=== PATIENT | male | born 1960 | race Caucasian/White ===

== ENCOUNTER 2019-06-21 06:22 | Observation (INO) | payer OTHER ==
[2019-06-21 06:57] LABS: BASOPHILS # (AUTO) 0.1 10^3/uL (0.0-0.1); BASOPHILS % (AUTO) 0.6 %; EOSINOPHILS # (AUTO) 0.1 10^3/uL (0.0-0.7); EOSINOPHILS % (AUTO) 0.8 %; HGB - HEMOGLOBIN 13.9 g/dL (14.0-18.0); LYMPHOCYTES # (AUTO) 1.2 10^3/uL (1.5-3.5); LYMPHOCYTES % (AUTO) 10.7 %; MEAN CORPUSCULAR HEMOGLOBIN 32.7 pg (27.0-31.0); MEAN CORPUSCULAR HGB CONC 33.3 g/dL (32.0-36.0); MEAN CORPUSCULAR VOLUME 98.1 fL (80.0-94.0); MEAN PLATELET VOLUME 9.7 fL (7.4-11.4); MONOCYTES # (AUTO) 0.6 10^3/uL (0.0-1.0); MONOCYTES % (AUTO) 5.2 %; NEUTROPHILS # (AUTO) 8.9 10^3/uL (1.5-6.6); NEUTROPHILS % (AUTO) 82.1 %; PLT - PLATELET COUNT 191 10^3/uL (130-450); RED BLOOD COUNT 4.25 10^6/uL (4.70-6.10); RED CELL DISTRIBUTION WIDTH 12.3 % (12.0-15.0); WHITE BLOOD COUNT 10.8 x10^3/uL (4.8-10.8)
--- NOTE | 2019-06-21 07:02 | ED Physician Documentation ---
PD HPI URI - Stated complaint Stated Complaint: COUGH - Chief complaint Chief Complaint: Resp - History obtained from History obtained from: Patient - History of Present Illness Timing - onset: Yesterday Timing duration: Days (1He had an onset of malaise aches and chills along with some cough yesterday. This worsened overnight and noticed hemoptysis with starting coughing overnight. He does feel short of breath. He is not had any exertional dyspnea nor chest pain in the past. Denies any pedal edema nor orthopnea. No recent unusual change in activity. He states he did pretend or work as a [employer] last week and [employer] custom and [employer]. He states this was stored in a plastic bag and a clean area so does not believe he had unusual inhalations. He was around a lot of kids. He denies any heart or lung problems typically. He states he has been told he has a heart murmur in the past. He is a non-smoker.) Timing details: Abrupt onset, Still present Associated symptoms: Chills, Productive cough (Some mucus but mainly some blood and a couple of clots.), Dyspnea. No: NVD Contributing factors: No: Sick contact, Immunocompromised, COPD / asthma Improves by: Rest Worsened by: Activity Similar symptoms before: Has not had sx before Recently seen: Not recently seen Review of Systems Constitutional: reports: Chills (for 1 day), Myalgias, Fatigue Nose: denies: Rhinorrhea / runny nose, Congestion Throat: denies: Sore throat Cardiac: denies: Palpitations, Pedal edema, Calf pain Respiratory: reports: Dyspnea, Cough, Wheezing GI: denies: Abdominal Pain, Nausea, Vomiting : denies: Dysuria Skin: denies: Rash, Lesions Musculoskeletal: denies: Neck pain, Back pain, Extremity swelling Neurologic: reports: Generalized weakness. denies: Focal weakness, Numbness, Near syncope, Altered mental status Endocrine: denies: Weight loss, Weight gain, Easy bruising / bleeding Immunocompromised: denies: Immunocompromised PD PAST MEDICAL HISTORY - Past Medical History Past Medical History: Yes Cardiovascular: None, Murmur Respiratory: None Neuro: None Endocrine/Autoimmune: None Psych: Depression, Other Musculoskeletal: Osteoarthritis, Gout Other Past Medical History: Insomnia - Past Surgical History Past Surgical History: Yes General: Hiatal hernia repair - Present Medications Home Medications: Ambulatory Orders Medication Instructions Recorded Confirmed Allopurinol [Zyloprim] 300 mg PO QPM 06/21/19 06/21/19 Citalopram Hydrobromide [Celexa] 1 tab PO QPM 06/21/19 06/21/19 Meloxicam [Mobic] 15 mg PO QPM 06/21/19 06/21/19 Zolpidem Tartrate [Ambien] 10 mg PO QPM 06/21/19 06/21/19 - Allergies Allergies/Adverse Reactions: Allergies Allergy/AdvReac Type Severity Reaction Status Date / Time No Known Drug Allergies Allergy Verified 06/21/19 06:40 - Social History Does the pt smoke?: No Smoking Status: Never smoker Does the pt drink ETOH?: Yes ETOH Use: Beer - Immunizations Immunizations are current?: Yes - POLST Patient has POLST: No PD ED PE NORMAL - Vitals Vital signs reviewed: Yes (sats 83-88% RA.) - General General: Alert and oriented X 3, Well developed/nourished - HEENT HEENT: Moist mucous membranes, Pharynx benign - Neck Neck: Supple, no meningeal sign, No adenopathy - Cardiac Cardiac: RRR, Other (2 out of 6 murmur noted at the left sternal border radiating to the back.) - Respiratory Respiratory: No: Clear bilaterally (I hear some mild diffuse wheezes and some coarse sounds in the left lower base. No fine crackles are heard.) - Abdomen Abdomen: Soft, Non tender - Male Male : Deferred - Rectal Rectal: Deferred - Back Back: No CVA TTP - Derm Derm: Normal color - Extremities Extremities: No deformity, No tenderness to palpate, No edema, No calf tenderness / cord - Neuro Neuro: Alert and oriented X 3, No motor deficit, Normal speech Results - Vitals Vitals: Vital Signs - 24 hr 06/21/19 06/21/19 06/21/19 06:25 07:21 07:39 Temperature 36.5 C Heart Rate 96 85 Respiratory 16 20 Rate Blood Pressure 148/82 H 124/75 O2 Saturation 91 L 94 91 L 06/21/19 06/21/19 06/21/19 07:40 07:59 09:12 Temperature 37.9 C H Heart Rate 86 88 Respiratory 20 12 20 Rate Blood Pressure 105/67 O2 Saturation 94 91 L 12/16/19 12/16/19 12/16/19 09:49 10:07 11:15 Temperature 38 C H Heart Rate 85 91 Respiratory 12 19 Rate Blood Pressure 97/76 O2 Saturation 88 L 92 Oxygen O2 Source Nasal cannula Oxygen Flow Rate 2 - Labs Labs: Laboratory Tests 06/21/19 06/21/19 06/21/19 06:50 06:50 06:50 WBC 10.8 RBC 4.25 L Hgb 13.9 L Hct 41.7 L MCV 98.1 H MCH 32.7 H MCHC 33.3 RDW 12.3 Plt Count 191 MPV 9.7 Neut # (Auto) 8.9 H Lymph # (Auto) 1.2 L Donley # (Auto) 0.6 Eos # (Auto) 0.1 Baso # (Auto) 0.1 Absolute Nucleated RBC 0.00 Nucleated RBC % 0.0 ESR Sodium 138 Potassium 4.5 Chloride 103 Carbon Dioxide 27 Anion Gap 8.0 BUN 16 Creatinine 1.1 Estimated GFR (MDRD) 69 L Glucose 120 H Calcium 9.3 Total Bilirubin 1.1 H AST 31 ALT 23 Alkaline Phosphatase 58 Lactate Dehydrogenase C-Reactive Protein B-Natriuretic Peptide 181 H Total Protein 6.7 Albumin 3.7 Globulin 3.0 Albumin/Globulin Ratio 1.2 Lipase 28 Urine Color Urine Clarity Urine pH Ur Specific [place] Urine Protein Urine Glucose (UA) Urine Ketones Urine Occult Blood Urine Nitrite Urine Bilirubin Urine Urobilinogen Ur Leukocyte Esterase Urine RBC Urine WBC Ur Squamous Epith Cells Urine Bacteria Urine Culture Comments Influenza A (Rapid) Influenza B (Rapid) RSV Rapid 06/21/19 06/21/19 06/21/19 06:50 06:50 09:50 WBC RBC Hgb Hct MCV MCH MCHC RDW Plt Count MPV Neut # (Auto) Lymph # (Auto) Donley # (Auto) Eos # (Auto) Baso # (Auto) Absolute Nucleated RBC Nucleated RBC % ESR Sodium Potassium Chloride Carbon Dioxide Anion Gap BUN Creatinine Estimated GFR (MDRD) Glucose Calcium Total Bilirubin AST ALT Alkaline Phosphatase Lactate Dehydrogenase 165 C-Reactive Protein 1.4 H B-Natriuretic Peptide Total Protein Albumin Globulin Albumin/Globulin Ratio Lipase Urine Color Urine Clarity Urine pH Ur Specific [place] Urine Protein Urine Glucose (UA) Urine Ketones Urine Occult Blood Urine Nitrite Urine Bilirubin Urine Urobilinogen Ur Leukocyte Esterase Urine RBC Urine WBC Ur Squamous Epith Cells Urine Bacteria Urine Culture Comments Influenza A (Rapid) Influenza B (Rapid) RSV Rapid Negative 06/21/19 06/21/19 06/21/19 09:50 10:30 11:30 WBC RBC Hgb Hct MCV MCH MCHC RDW Plt Count MPV Neut # (Auto) Lymph # (Auto) Donley # (Auto) Eos # (Auto) Baso # (Auto) Absolute Nucleated RBC Nucleated RBC % ESR 4 Sodium Potassium Chloride Carbon Dioxide Anion Gap BUN Creatinine Estimated GFR (MDRD) Glucose Calcium Total Bilirubin AST ALT Alkaline Phosphatase Lactate Dehydrogenase C-Reactive Protein B-Natriuretic Peptide Total Protein Albumin Globulin Albumin/Globulin Ratio Lipase Urine Color YELLOW Urine Clarity CLEAR Urine pH 7.0 Ur Specific [place] <=1.005 Urine Protein NEGATIVE Urine Glucose (UA) NEGATIVE Urine Ketones NEGATIVE Urine Occult Blood NEGATIVE Urine Nitrite NEGATIVE Urine Bilirubin NEGATIVE Urine Urobilinogen 0.2 (NORMAL) Ur Leukocyte Esterase NEGATIVE Urine RBC None Seen Urine WBC 0-3 Ur Squamous Epith Cells NONE SEEN Urine Bacteria None Seen Urine Culture Comments NOT INDICATED Influenza A (Rapid) Negative Influenza B (Rapid) Negative RSV Rapid - Rads (name of study) chest xray Radiology: Prelim report reviewed (Left lower infiltrate consistent with pneumonia), See rad report chest CT Radiology: Prelim report reviewed (Interstitial changes and fluid consistent with CHF and pulmonary edema), EMP read contemporaneously, See rad report PD MEDICAL DECISION MAKING - ED course Complexity details: reviewed results (initialCXR says pneumonia. The CT read is pulmonary edema, but clinically does not fit. I think it is interstitial pneumonia. Consider inflammatory as well. He does not seem CHF. ), re-evaluated patient (He was given nebulizer treatments and started with medications presuming bronchitis or pneumonia. He is not having any respiratory work such as retractions nor positional comfort. However he is still saturating down to as low as 82 to 83% on room air though it does oscillate between 83 and 90 if he takes a deep breath. He is oxygenating well with just a nasal cannula at 2 L.), considered differential (Sounds like bronchitis with some wheezing chills malaise myalgias and cough. However he is interestingly hypoxic.), d/w patient Departure - Departure Disposition: [facility] DC/Xfer Clinical Impression: Acute pneumonia, Hypoxia, Cough with hemoptysis Condition: Stable Discharge Date/Time: 06/21/19 12:32
[2019-06-21 07:15] LABS: ALBUMIN 3.7 g/dL (3.2-5.5); ALBUMIN/GLOBULIN RATIO 1.2 (1.0-2.2); BILIRUBIN,TOTAL 1.1 mg/dL (0.2-1.0); CALCIUM 9.3 mg/dL (8.5-10.3); CREATININE 1.1 mg/dL (0.6-1.2); TOTAL PROTEIN 6.7 g/dL (6.7-8.2)
[2019-06-21] MEDS ORDERED: ALBUTEROL NEB 2.5 MG/3 ML INH STA ×2 (07:30→09:46)
--- NOTE | 2019-06-21 08:02 | XRAY Report ---
Reason: dyspnea/ cough Procedure Date: 06/21/2019 Accession Number: [id number] / [id number] Procedure: XR - Chest 2 View X-Ray CPT Code: 57464 Final Report FULL RESULT: EXAM: CHEST RADIOGRAPHY EXAM DATE: 06/21/2019 07:38 AM. CLINICAL HISTORY: Dyspnea/cough. COMPARISON: CXR2V 03/15/2006 9:39 PM. TECHNIQUE: 2 views. FINDINGS: Lungs/Pleura: There is mild patchy opacity at the posterior base of the left lower lobe, best seen on the lateral view. The right lung is clear. No pleural effusion. No pneumothorax. Normal volumes. Mediastinum: Heart and mediastinal contours are unremarkable. Other: No acute osseous abnormality. IMPRESSION: Mild patchy opacity at the posterior base of the left lower lobe, suspicious for pneumonia or aspiration in the appropriate clinical context. RADIA
[2019-06-21] MEDS ORDERED: IOVERSOL 320 100 ML VIAL IVP ONE ×2 (08:32→12:35)
[2019-06-21] MEDS ORDERED: BENZONATATE 100 MG CAPSULE PO STA (08:58)
[2019-06-21] MEDS ORDERED: cefTRIAXone 1 GM VIAL IVP STA (08:58)
[2019-06-21] MEDS ORDERED: DEXAMETHASONE 10 MG/ML VIAL IVP STA (08:58)
[2019-06-21] MEDS ORDERED: AZITHROMYCIN 250 MG TABLET PO STA (08:58)
--- NOTE | 2019-06-21 09:35 | CT Report ---
Reason: cough/chills and hemoptysis Procedure Date: 06/21/2019 Accession Number: [id number] / [id number] Procedure: CT - CHEST W CPT Code: Final Report FULL RESULT: EXAM: CT CHEST WITH CONTRAST EXAM DATE: 06/21/2019 08:54 AM. CLINICAL HISTORY: Cough/chills and hemoptysis in a 59-year-old male. COMPARISONS: CHEST 2 VIEW 06/21/2019 7:19 AM. CXR2V 03/15/2006 9:39 PM. TECHNIQUE: Emergent axial helical CT imaging was performed through the chest. IV contrast: 80 mL Optiray 320. Reconstructions: Coronal and sagittal. In accordance with CT protocol optimization, one or more of the following dose reduction techniques were utilized for this exam: automated exposure control, adjustment of mA and/or KV based on patient size, or use of iterative reconstructive technique. FINDINGS: Lungs/Pleura: No nodules, bronchial thickening, consolidation, or edema. Pulmonary vasculature mildly thickened with adjacent edema. No pericardial or pleural effusion. No pneumothorax. Mediastinum: Heart size upper normal with mild to moderate pulmonary vascular congestion and mild interstitial and alveolar edema. Bones: Unremarkable for age. Visualized Abdomen: Unremarkable. Other: None. IMPRESSION: Mild CHF and pulmonary edema. No other abnormalities noted. RADIA
[2019-06-21 10:49] LABS: RESPIRATORY SYNCYTIAL VIRUS Negative (Negative)
[2019-06-21 11:45] LABS: BILIRUBIN,URINE NEGATIVE (NEGATIVE); GLUCOSE, URINE (UA) NEGATIVE (NEGATIVE); KETONES,URINE (UA) NEGATIVE (NEGATIVE); LEUKOCYTE ESTERASE, URINE NEGATIVE (NEGATIVE); NITRITE,URINE NEGATIVE (NEGATIVE); OCCULT BLOOD,URINE NEGATIVE (NEGATIVE); PROTEIN,URINE NEGATIVE (NEGATIVE); UROBILINOGEN,URINE 0.2 (NORMAL) E.U./dL (NORMAL)
[2019-06-21 11:51] LABS: CLARITY,URINE CLEAR (CLEAR)
[2019-06-21] MEDS ORDERED: ACETAMINOPHEN 325 MG TABLET PO PRN (11:51)
[2019-06-21] MEDS ORDERED: oxyCODONE 5 MG TABLET PO PRN (11:51)
[2019-06-21] MEDS ORDERED: ONDANSETRON 4 MG/2 ML VIAL IVP PRN (11:51)
[2019-06-21] MEDS ORDERED: SODIUM CHLORIDE FLUSH 0.9% 10 ML SYRINGE IVP PRN (11:51)
[2019-06-21] MEDS ORDERED: ONDANSETRON ODT 4 MG TABLET TL PRN (11:51)
[2019-06-21 11:54] LABS: BACTERIA,URINE None Seen /HPF (None Seen); RBC,URINE None Seen /HPF (0-5); SQUAMOUS EPITHELIAL CELL,UR NONE SEEN (<= Few)
[2019-06-21] MEDS ORDERED: SODIUM CHLORIDE 0.9% 1,000 ML IV ONE (12:30)
[2019-06-21] MEDS: SODIUM CHLORIDE 0.9% 1,000 ML IV SCH ×2 (13:13→22:47)
[2019-06-21] MEDS: SODIUM CHLORIDE FLUSH 0.9% 10 ML SYRINGE IVP SCH (13:14)
[2019-06-21 13:24] LABS: HGB - HEMOGLOBIN 13.5 g/dL (14.0-18.0)
--- NOTE | 2019-06-21 13:25 | PHARMACY PROGRESS NOTE ---
- Best Possible Medication History Admit Date and Time: 06/21/19 1153 Processed by: Nursing Medication History completed: Yes As the person ultimately responsible for medication therapy, providers are able to order a medication from an existing home medication list in [facility] via the "Reconcile Routine" prior to Confirmation of that medication by sales and support center agent. Such practice is discouraged except when the physician, in their clinical judgment, deems that a medical need exists for a medication without regard to previous use.
--- NOTE | 2019-06-21 13:45 | HISTORY & PHYSICAL EXAMINATION ---
Chief Complaint - Chief Complaint Chief Complaint: myalgias, fatigue, cough w hemoptysis History of Present Illness - Admitted From Admitted From:: Home/ER - History Obtained From Records Reviewed: [facility] History obtained from: patient Exam Limitations: none - History of Present Illness HPI Comment/Other: He regards himself is a healthy man. Does not smoke. Drinks a few beers every once well. But his problems of depression, and osteoarthritis are stable. His activities are not limited by any cardiopulmonary complaints. No one else around him is sick. He is retired. He worked as a Works[employer] last week using a [employer]. And yesterday he began to have malaise, and just hurting all over. It was a mild cough. He denied any rigors, fever. As the day progressed into the night, the cough got worse. Started feeling short of breath. He denied chest pain, pleuritic component at all. When he started coughing up scant hemoptysis and then clots of hemoptysis he became alarmed and came to the emergency room. He denies headache, runny nose, ear pain, throat pain. He denies any leg edema, recent long-term travel, GI complaints. He denies any bruising or body rashes. In the emergency room his temperature was 36 5, heart rate 96, blood pressure 148/92 and he was 91% on room air. He is ended up requiring 2 L nasal cannula. At times his O2 sat still dropped to 88% with that nasal cannula. White cell count is normal. Hemoglobin 13.9. MCV 98. Random glucose is a little high at 120. Chest x-ray was negative. I was called to admit the patient for "pneumonia". CT of the chest had also been done. And I noticed that the CT showed no pneumonia. But with mild pulmonary vasculature thickening and adjacent edema. No pericardial or pleural effusion. Heart size was the upper limits of normal with mild to moderate pulmonary vascular congestion and mild interstitial and alveolar edema. I was worried about Karmen's granulomatosis or Goodpasture's and I had the emergency room physician do a C-reactive protein and a sed rate. C-reactive protein was 1.4. LDH was 165. Sedimentation rate was 4. He has received azithromycin, dexamethasone and albuterol in the emergency room. He will be placed in observation overnight. History - Past Medical History Cardiovascular: reports: Murmur Respiratory: reports: None Neuro: reports: None Endocrine/Autoimmune: reports: None GI: reports: Hiatal hernia : reports: None HEENT: reports: None Psych: reports: Depression Musculoskeletal: reports: Osteoarthritis, Gout Derm: reports: None MRSA Hx?: No Other Past Medical History: Insomnia - Past Surgical History General: reports: Hiatal hernia repair - Family & Social History Family History Comment/Other: Dad around age 84 of just "wearing down". He had no history of cancer, heart disease, autoimmune disease. Mom is still alive but elderly. Again she has no problems with autoimmune disease, cancer, heart attack, stroke. He is 1 of 5 children. 1 of his brothers smoked like a chimney and is on oxygen for emphysema but his other siblings are healthy. He has 2 children and they are completely healthy. Living arrangement: At home Living Situation: Other (with fiance) Social History Notes: He is retired [employer]. Says he never smoked. Rarely drank. If he does drink he prefers beer. from his first . Currently engaged to his fiance. Denies any history of recreational substance abuse. - Substance History Use: Uses substance without health or social issues: NONE Abuse: Recurrent use of substance despite neg consequences: NONE Dependence: Experiences withdrawal or developed tolerances: NONE - POLST Patient has POLST: No POLST Status: Full Code Meds/Allgy - Home Medications Home Medications: Ambulatory Orders Medication Instructions Recorded Confirmed Allopurinol [Zyloprim] 300 mg PO QPM 06/21/19 06/21/19 Citalopram Hydrobromide [Celexa] 1 tab PO QPM 06/21/19 06/21/19 Meloxicam [Mobic] 15 mg PO QPM 06/21/19 06/21/19 Zolpidem Tartrate [Ambien] 10 mg PO QPM 06/21/19 06/21/19 - Allergies Allergies/Adverse Reactions: Allergies Allergy/AdvReac Type Severity Reaction Status Date / Time No Known Drug Allergies Allergy Verified 06/21/19 06:40 Review of Systems - Constitutional Constitutional: reports: Fatigue, Chills, Malaise (all this last 24 hours, abrupt in onset) - Eyes Eyes: denies: Pain, Irritation, Amaurosis, Blurred vision, Vision loss - Ears, Nose & Throat Ears, Nose & Throat: denies: Ear pain, Hearing loss, Hearing aids, Nasal pain, Nasal discharge, Postnasal drainage, Sore throat, Hoarseness - Cardiovascular Cariovascular: reports: Exertional dyspnea, Decr. exercise tolerance (all in the last 24 hours). denies: Irregular heart rate, Palpitations, Chest pain, Edema, Syncope - Respiratory Respiratory: reports: Cough, Hemoptysis, SOB at rest, SOB with exertion. denies: Sputum production, Wheezing, Snoring, Orthopnea - Gastrointestinal Gastrointestinal: denies: Abdominal pain, Abdominal distention, Diarrhea, Change in bowel habits - Genitourinary Genitourinary: denies: Dysuria, Frequency, Urgency, Incontinence, Flank pain - Musculoskeletal Musculoskeletal: reports: Muscle pain, Back pain, Muscle aches, Stiffness, Joint pain, Other (his joints are stiff and his main limitation and have been for years,not new. But myalgias, and increased aches new for the last 24 hours) - Integumentary Integumentary: denies: Rash, Pruritis, Lesions, Dryness - Neurological Neurological: denies: General weakness, Focal weakness, Headache, Dizziness, Memory problems, Abnormal gait Prior Level of Functionality: The independent with activities of daily living. Pays his own bills. Drives a car. He smiles and says he no longer has to clean the house because he is moved into a travel trailer and it is much easier. Exam - Vital Signs Reviewed Vital Signs: Yes Vital Signs: Vital Signs x48h Temp Pulse Pulse Resp BP BP Pulse Ox 06/21/19 12:40 37.2 C 87 16 130/75 92 06/21/19 12:06 37.1 C 92 25 H 125/77 90 L 06/21/19 11:15 38 C H 91 19 97/76 92 06/21/19 10:07 85 12 06/21/19 09:49 88 L 06/21/19 09:12 37.9 C H 88 20 105/67 91 L 06/21/19 07:59 86 12 06/21/19 07:40 20 94 06/21/19 07:39 91 L 06/21/19 07:21 85 20 124/75 94 06/21/19 06:25 36.5 C 96 16 148/82 H 91 L - Physical Exam General Appearance: positive: No acute distress, Alert, Other (Moving restlessly. Crossing and crossing his legs. Occasional grimace of discomfort on his face. Ask him if there is something I can do to make him feel better and he says that he is just unhappy at being here and is frustrated that he has to be placed in observation. His fiance is at the bedside.) Eyes Bilateral: positive: PERRL, EOMI ENT: positive: Pharynx nml, No signs of dehydration Neck: positive: No JVD. negative: Stiff neck, Carotid bruit Respiratory: positive: Chest non-tender, Rhonchi. negative: Wheezes, Rales Cardiovascular: positive: Regular rate & rhythm, Systolic murmur. negative: Gallop/S4, Friction rub Peripheral Pulses: positive: 1+ Abdomen: positive: Non-tender, No organomegaly, No distention Skin: positive: No rash (no petechia), Warm, Dry Extremities: positive: Non-tender, Full ROM, Nml appearance Neurologic/Psychiatric: positive: Oriented x3, CN's nml (2-12), Motor nml, Sensation nml Conclusion/Plan - Problem List (1) Cough with hemoptysis Conclusion/Plan: This is a gentleman who is an abrupt viral prodrome of chills, myalgias, and has a fever in the emergency room. He is hypoxic. He is flu screen is negative. Nevertheless differential diagnosis in this gentleman would be viral pneumonitis, and I will start Tamiflu and empiric azithromycin for atypical pneumonia. I do not believe he has hemorrhagic pneumonitis that is infectious. Were not in the region where hantavirus would be a problem. I spoke to [facility] consult service and spoke to morale officer. At this time they do not recommend steroids. However, the idea of watching for autoimmune phenomena is valid. If he continues to have hemoptysis and does not respond over the next few days he may need an ANCA, p-ANCA, ELBA, and rheumatoid factor. At this time he does not have any sinus complaints. His urinalysis is pristine. If he continues to have hemoptysis and worsening hypoxia, he will need a repeat CT only this time with CT angiogram to make sure there is no pulmonary emboli. Because of the appearance of pulmonary edema, history of murmur, I will check an echocardiogram, BNP. No recent dental work. (2) Hypoxia Conclusion/Plan: Oxygen by nasal cannula to maintain O2 sats greater than 92%. Patient is a full code. If he worsens, will need to go to BiPAP then is to be intubated. - Lab Results Lab results reviewed: Yes Fish Bones: 06/21/19 13:19 06/21/19 06:50 - Diagnostic Imaging Results Diagnostic Imaging Results: positive: Final report reviewed Diagnostic Imaging Results Comments: CT CHEST WITH CONTRAST EXAM DATE: 06/21/2019 08:54 AM. CLINICAL HISTORY: Cough/chills and hemoptysis in a 59-year-old male. COMPARISONS: CHEST 2 VIEW 06/21/2019 7:19 AM. CXR2V 03/15/2006 9:39 PM. TECHNIQUE: Emergent axial helical CT imaging was performed through the chest. IV contrast: 80 mL Optiray 320. Reconstructions: Coronal and sagittal. In accordance with CT protocol optimization, one or more of the following dose reduction techniques were utilized for this exam: automated exposure control, adjustment of mA and/or KV based on patient size, or use of iterative reconstructive technique. FINDINGS: Lungs/Pleura: No nodules, bronchial thickening, consolidation, or edema. Pulmonary vasculature mildly thickened with adjacent edema. No pericardial or pleural effusion. No pneumothorax. Mediastinum: Heart size upper normal with mild to moderate pulmonary vascular congestion and mild interstitial and alveolar edema. Bones: Unremarkable for age. Visualized Abdomen: Unremarkable. Other: None. IMPRESSION: Mild CHF and pulmonary edema. No other abnormalities noted. CHEST RADIOGRAPHY EXAM DATE: 06/21/2019 07:38 AM. CLINICAL HISTORY: Dyspnea/cough. COMPARISON: CXR2V 03/15/2006 9:39 PM. TECHNIQUE: 2 views. FINDINGS: Lungs/Pleura: There is mild patchy opacity at the posterior base of the left lower lobe, best seen on the lateral view. The right lung is clear. No pleural effusion. No pneumothorax. Normal volumes. Mediastinum: Heart and mediastinal contours are unremarkable. Other: No acute osseous abnormality. IMPRESSION: Mild patchy opacity at the posterior base of the left lower lobe, suspicious for pneumonia or aspiration in the appropriate clinical context. - EKG Results EKG Interpreted Independently: No Core Measures - Anticipated LOS I expect patient to be DC'd or transferred within 96 hours.: Yes - DVT/VTE - Prophylaxis VTE/DVT Device ordered at admit?: Yes
[2019-06-21] MEDS ORDERED: ZOLPIDEM 5 MG TABLET PO PRN (17:07)
[2019-06-21 17:56] LABS: HGB - HEMOGLOBIN 12.6 g/dL (14.0-18.0)
[2019-06-21] MEDS: OSELTAMIVIR 75 MG CAPSULE PO SCH ×2 (19:08→21:27)
[2019-06-21] MEDS ORDERED: CITALOPRAM 10 MG TABLET PO SCH (19:41)
[2019-06-21] MEDS ORDERED: OSELTAMIVIR 75 MG CAPSULE PO SCH (21:00)
[2019-06-21] MEDS ORDERED: allopurinoL 100 MG TABLET PO SCH (21:00)
[2019-06-22 00:05] LABS: HGB - HEMOGLOBIN 12.5 g/dL (14.0-18.0)
[2019-06-22] MEDS: SODIUM CHLORIDE FLUSH 0.9% 10 ML SYRINGE IVP SCH ×2 (01:43→11:05)
[2019-06-22 08:34] VITALS: BP 123/68
[2019-06-22] MEDS ORDERED: CITALOPRAM 10 MG TABLET PO SCH (09:00)
[2019-06-22] MEDS ORDERED: AZITHROMYCIN INJ 500 MG in SODIUM CHLORIDE 0.9% 250 ML IV SCH (09:00)
[2019-06-22] MEDS: OSELTAMIVIR 75 MG CAPSULE PO SCH (10:19)
--- NOTE | 2019-06-22 10:58 | DISCHARGE SUMMARY ---
Discharge Summary Admit Date: 06/21/19 Discharge Date: 06/22/19 Discharging Provider: Pearl Amaya MD Primary Care Provider: [facility] Code Status: Attempt Resuscitation Condition at Discharge: Fair Discharge Disposition: 02 Transfer Acute Care Hosp Discharge Facility Name: [facility] - DIAGNOSES Discharge Diagnoses with Status of Each Condition: 1. Acute pulmonary edema 2. Acute Hemoptysis 3. Mitral regurgitation, new 4. Acute hypoxia - HPI History of Present Illness: He regards himself is a healthy man. Does not smoke. Drinks a few beers every once well. But his problems of depression, and osteoarthritis are stable. His activities are not limited by any cardiopulmonary complaints. No one else around him is sick. He is retired. He worked as a [employer] last week using a [employer] and [employer]. And yesterday he began to have malaise, and just hurting all over. It was a mild cough. He denied any rigors, fever. As the day progressed into the night, the cough got worse. Started feeling short of breath. He denied chest pain, pleuritic component at all. When he started coughing up scant hemoptysis and then clots of hemoptysis he became alarmed and came to the emergency room. He denies headache, runny nose, ear pain, throat pain. He denies any leg edema, recent long-term travel, GI complaints. He denies any bruising or body rashes. In the emergency room his temperature was 36 5, heart rate 96, blood pressure 148/92 and he was 91% on room air. He is ended up requiring 2 L nasal cannula. At times his O2 sat still dropped to 88% with that nasal cannula. White cell count is normal. Hemoglobin 13.9. MCV 98. Random glucose is a little high at 120. Chest x-ray was negative. I was called to admit the patient for "pneumonia". CT of the chest had also been done. And I noticed that the CT showed no pneumonia. But with mild pulmonary vasculature thickening and adjacent edema. No pericardial or pleural effusion. Heart size was the upper limits of normal with mild to moderate pulmonary vascular congestion and mild interstitial and alveolar edema. I was worried about Karmen's granulomatosis or Goodpasture's and I had the emergency room physician do a C-reactive protein and a sed rate. C-reactive protein was 1.4. LDH was 165. Sedimentation rate was 4. He has received azithromycin, dexamethasone and albuterol in the emergency room. He will be placed in observation overnight. History - Past Medical History Cardiovascular: reports: Murmur Respiratory: reports: None Neuro: reports: None Endocrine/Autoimmune: reports: None GI: reports: Hiatal hernia : reports: None HEENT: reports: None Psych: reports: Depression Musculoskeletal: reports: Osteoarthritis, Gout Derm: reports: None - CONSULTS | PROCEDURES Procedures: 1. Chest x-ray. Mild patchy opacity at the posterior base of the left lower lobe, suspicious for pneumonia or aspiration in the appropriate clinical setting 2. CT of the chest with no nodules, bronchial thickening, consolidation or edema. Pulmonary vasculature with mild thickened adjacent edema. No pericardial or pleural effusion. Heart size upper limits of normal with mild to moderate pulmonary vascular congestion and mild interstitial and alveolar edema. Otherwise no infiltrates. 3. Echocardiogram: Preliminary report. Final report pending. Left ventricular wall thickness is normal. Overall left ventricular function normal with ejection fraction 65 to 70%. Impaired relaxation consistent with grade 1 diastolic dysfunction. No regional wall motions abnormality. Right ventricle normal size and function. Moderate to severe increase in left atrial volume index. Moderate right atrial enlargement. Severe mitral regurgitation. Regurgitation is predominantly an anterior directed jet. ER O is 0.39 cm and the regurgitant volume is 44 mils. Severe prolapse of the posterior mitral valve leaflet. Moderately abnormal right heart pressures with RVSP at rest 56 mmHg. BNP 194. 4. Troponin 4.4, C-reactive protein 1.4, sedimentation rate 4. 5. EKG with normal sinus rhythm and no acute ST-T wave changes, slightly prolonged QT. - HOSPITAL COURSE Hospital Course: He waited in the emergency room and initially felt that he may have pneumonia and received community-acquired pneumonia treatment. However clinically, he did not meet the criteria. He was hypoxic but did not have a fever, chills, elevated white cell count. We did a viral screen for influenza that was negative. His lungs were essentially clear. The history was that of sudden on set. We thought about autoimmune disease such as Karmen's and Goodpasture's. We did not do P ANCA, ANCA or ELBA since his sed rate was 4 and his C-reactive protein was relatively noninflammatory. He has a murmur. As such we did an echocardiogram and that showed the probable etiology of his pulmonary vascular congestion and hemoptysis. He has severe mitral regurgitation. I spoke to Dr. Clarence Cohen, [place] [facility]. He feels that the patient needs transfer to [facility] for tr ansesophageal echo and other studies. The patient and his fiance are amenable to this. He is transferred in stable condition. Temperature 36.8 pulse 70 blood pressure 123/68 respirations 16 and he is requiring 2 L to maintain O2 sats at 94%. He is a stocky 5 foot 10 inch male who looks his stated age who weighs 99.5 kg. He is in no respiratory distress, neck is supple without JVD, a few minimal crackles at the bases that clear with a deep cough. He is still producing hemoptysis. PMI normally placed with a regular rate and rhythm and a diastolic murmur. The abdomen is obese, soft, nontender. Extremities are without edema. Skin is warm and dry. Although he has been accepted at [facility], the in house counsel tells me that it may be 4 to 5 hours from time of this dictation before the patient could be transferred. If there is any change in his status I will do an addendum. - ALLERGIES Allergies/Adverse Reactions: Allergies Allergy/AdvReac Type Severity Reaction Status Date / Time No Known Drug Allergies Allergy Verified 06/21/19 06:40 - MEDICATIONS Home Medications: Ambulatory Orders Medication Instructions Recorded Confirmed Allopurinol [Zyloprim] 300 mg PO QPM 06/21/19 06/21/19 Citalopram Hydrobromide [Celexa] 1 tab PO QPM 06/21/19 06/21/19 Meloxicam [Mobic] 15 mg PO QPM 06/21/19 06/21/19 Zolpidem Tartrate [Ambien] 10 mg PO QPM 06/21/19 06/21/19 - LABS Result Diagrams: 06/21/19 23:58 06/21/19 06:50
--- NOTE | 2019-06-22 11:03 | Discharge Plan ---
Discharge Plan Problem Reviewed?: Yes Disposition: 02 Transfer Acute Care Hosp Condition: Fair Diet: Regular No Smoking: If you smoke, Please STOP! Call for help. Follow-up with: MARILY LICONA [Primary Care Provider] -
[2019-06-22] MEDS ORDERED: CITALOPRAM HYDROBROMIDE 20 MG TABLET PO SCH (21:00)
== END 2019-06-22 13:40 | disposition short-term general hospital (02) ==
LOC: ED 06:22 → MS2 11:53
PROVIDERS: ADMIT Specialist; ATTEND Specialist
DX: I50.9 Heart failure, unspecified (principal); I34.0 Nonrheumatic mitral (valve) insufficiency; R04.2 Hemoptysis; R09.02 Hypoxemia; F32.9 Major depressive disorder, single episode, unspecified; M19.90 Unspecified osteoarthritis, unspecified site; R01.1 Cardiac murmur, unspecified
CPT/HCPCS: 36415; 71046; 71260; 80053; 81001; 83615; 83690; 83880; 84484; 85014; 85018; 85025; 85651; 86140; 87275; 87276; 87280; 93005; 93306; 94640; 96361; 96365; 96375; 99285; A9270; G0378; Q9967; 87086

== ENCOUNTER 2019-06-22 13:41 | Outpatient (CLI) | payer OTHER | END 2019-06-22 13:42 | disposition short-term general hospital (02) | LOC: EMS 13:41 | PROVIDERS: ATTEND Surgery | DX: R04.2 Hemoptysis (principal); J81.1 Chronic pulmonary edema; R07.9 Chest pain, unspecified | CPT/HCPCS: A0425; A0428 ==

== ENCOUNTER 2019-08-16 14:35 | Outpatient (CLI) | payer OTHER | END 2019-08-16 14:36 | disposition home or self-care (01) | LOC: LAB 14:35 | PROVIDERS: ATTEND Internal Medicine Cardiovascular Disease | DX: Z98.890 Other specified postprocedural states (principal) | CPT/HCPCS: 85610 ==

== ENCOUNTER 2019-08-30 13:40 | Outpatient (CLI) | payer OTHER | END 2019-08-30 13:41 | disposition home or self-care (01) | LOC: LAB 13:40 | PROVIDERS: ATTEND Internal Medicine Cardiovascular Disease | DX: Z98.890 Other specified postprocedural states (principal) | CPT/HCPCS: 85610 ==

== ENCOUNTER 2019-09-13 12:45 | Outpatient (CLI) | payer OTHER | END 2019-09-13 12:46 | disposition home or self-care (01) | LOC: LAB 12:45 | PROVIDERS: ATTEND Internal Medicine Cardiovascular Disease | DX: Z98.890 Other specified postprocedural states (principal) | CPT/HCPCS: 85610 ==

== ENCOUNTER 2019-09-16 09:39 | Outpatient (CLI) | payer OTHER | END 2019-09-16 09:40 | disposition home or self-care (01) | LOC: RT 09:39 | PROVIDERS: ATTEND Internal Medicine Cardiovascular Disease | DX: I10 Essential (primary) hypertension (principal); R00.0 Tachycardia, unspecified | CPT/HCPCS: 36415; 80048; 84439; 84443; 85025; 93005 ==

== ENCOUNTER 2019-09-16 10:12 | Outpatient (CLI) | payer OTHER ==
[2019-09-16 10:46] LABS: BASOPHILS % (AUTO) 0.7 %; EOSINOPHILS # (AUTO) 0.2 10^3/uL (0.0-0.7); HGB - HEMOGLOBIN 13.6 g/dL (14.0-18.0); LYMPHOCYTES # (AUTO) 2.5 10^3/uL (1.5-3.5); LYMPHOCYTES % (AUTO) 43.1 %; MEAN CORPUSCULAR HEMOGLOBIN 28.9 pg (27.0-31.0); MEAN CORPUSCULAR HGB CONC 31.9 g/dL (32.0-36.0); MEAN CORPUSCULAR VOLUME 90.7 fL (80.0-94.0); MEAN PLATELET VOLUME 9.4 fL (7.4-11.4); MONOCYTES # (AUTO) 0.5 10^3/uL (0.0-1.0); MONOCYTES % (AUTO) 8.8 %; NEUTROPHILS # (AUTO) 2.5 10^3/uL (1.5-6.6); NEUTROPHILS % (AUTO) 42.9 %; PLT - PLATELET COUNT 234 10^3/uL (130-450); RED BLOOD COUNT 4.71 10^6/uL (4.70-6.10); RED CELL DISTRIBUTION WIDTH 14.6 % (12.0-15.0); WHITE BLOOD COUNT 5.8 x10^3/uL (4.8-10.8)
[2019-09-16 10:54] LABS: CALCIUM 9.2 mg/dL (8.5-10.3)
[2019-09-16 11:14] LABS: THYROID STIMULATING HORMONE 1.59 uIU/mL (0.34-5.60)
[2019-09-16 11:16] LABS: FREE T4 (FREE THYROXINE) 0.55 ng/dL (0.58-1.64)
== END 2019-09-16 10:13 | disposition home or self-care (01) ==
LOC: LAB 10:12
PROVIDERS: ATTEND Internal Medicine Cardiovascular Disease
DX: I10 Essential (primary) hypertension (principal); R00.0 Tachycardia, unspecified
CPT/HCPCS: 36415; 80048; 84439; 84443; 85025

== ENCOUNTER 2019-09-27 12:47 | Outpatient (CLI) | payer OTHER | END 2019-09-27 12:48 | disposition home or self-care (01) | LOC: LAB 12:47 | PROVIDERS: ATTEND Internal Medicine Cardiovascular Disease | DX: Z98.890 Other specified postprocedural states (principal) | CPT/HCPCS: 85610 ==

== ENCOUNTER 2022-10-09 09:53 | Emergency (ER) | payer OTHER ==
[2022-10-09 10:35] LABS: BASOPHILS % (AUTO) 0.6 %; EOSINOPHILS # (AUTO) 0.1 10^3/uL (0.0-0.7); EOSINOPHILS % (AUTO) 1.2 %; HCT - HEMATOCRIT 42.7 % (42.0-52.0); HGB - HEMOGLOBIN 14.1 g/dL (14.0-18.0); LYMPHOCYTES # (AUTO) 1.2 10^3/uL (1.5-3.5); LYMPHOCYTES % (AUTO) 19.2 %; MEAN CORPUSCULAR HEMOGLOBIN 32.8 pg (27.0-31.0); MEAN CORPUSCULAR VOLUME 99.3 fL (80.0-94.0); MONOCYTES # (AUTO) 0.9 10^3/uL (0.0-1.0); MONOCYTES % (AUTO) 13.6 %; NEUTROPHILS # (AUTO) 4.2 10^3/uL (1.5-6.6); NEUTROPHILS % (AUTO) 65.2 %; PLT - PLATELET COUNT 173 10^3/uL (130-450); RED CELL DISTRIBUTION WIDTH 12.6 % (12.0-15.0); WHITE BLOOD COUNT 6.4 x10^3/uL (4.8-10.8)
--- NOTE | 2022-10-09 10:46 | XRAY Report ---
PROCEDURE: Chest 1 View X-Ray INDICATIONS: Chest pain TECHNIQUE: One view of the chest was acquired. COMPARISON: Radiograph 06/21/2019. FINDINGS: Surgical changes and devices: Disrupted first sternotomy wire. Intravenous leads projected over the appropriate positions. Lungs and pleura: No pleural effusions or pneumothorax. Lungs are clear. Mediastinum: Mediastinal contours appear normal. Heart size is normal. Bones and chest wall: No suspicious bony lesions. Overlying soft tissues appear unremarkable. IMPRESSION: No acute cardiopulmonary process. Disrupted first sternotomy wire. Reviewed by: Sarath Zabala on 10/09/2022 10:45 AM PDT Approved by: Sartah Zabala on 10/09/2022 10:45 AM PDT Station ID: [id number]
[2022-10-09 10:49] LABS: ALBUMIN 3.7 g/dL (3.2-5.5); BILIRUBIN,TOTAL 0.9 mg/dL (0.2-1.0); CALCIUM 9.1 mg/dL (8.5-10.3); CREATININE 1.2 mg/dL (0.6-1.2); POTASSIUM 3.8 mmol/L (3.5-5.0); TOTAL PROTEIN 7.4 g/dL (6.7-8.2)
--- NOTE | 2022-10-09 12:45 | ED Physician Documentation ---
PD HPI CHEST PAIN - Stated complaint Stated Complaint: CHEST PX PACEMAKER - Chief complaint Chief Complaint: Cardiac - History obtained from History obtained from: Patient - History of Present Illness Timing - onset: How many days ago (7) Timing - onset during: Light activity Timing - details: Abrupt onset (The patient states he increased his atorvastatin from 20 to 40 mg at the direction of his primary care on October 01. The next day he started having aching diffusely, some loose stool and general headache. He denies any cough sore throat or runny nose. No fever or chills. He is continued with sxs.) Quality: Aching Associated symptoms: Nausea, General Weakness. No: Shortness of air, Diaphor esis Similar symptoms before: Has not had sx before (in retrospect the patient says he may have noticed some general weakness/aches when started the Atorvastatin at lower dose a few months ago.) Review of Systems Constitutional: reports: Myalgias, Fatigue. denies: Fever, Chills Nose: denies: Rhinorrhea / runny nose, Congestion Throat: denies: Sore throat Respiratory: denies: Cough GI: reports: Nausea Musculoskeletal: denies: Extremity swelling Neurologic: reports: Headache. denies: Confused, Altered mental status PD PAST MEDICAL HISTORY - Past Medical History Cardiovascular: High cholesterol, Murmur Respiratory: None Neuro: None Endocrine/Autoimmune: None GI: Hiatal hernia : None HEENT: None Psych: Depression, Other Musculoskeletal: Osteoarthritis, Gout Derm: None - Past Surgical History Past Surgical History: Yes General: Hiatal hernia repair - Present Medications Home Medications: Ambulatory Orders Medication Instructions Recorded Confirmed Citalopram Hydrobromide [Celexa] 1 tab PO QPM 06/21/19 06/21/19 Meloxicam [Mobic] 15 mg PO QPM 06/21/19 06/21/19 Zolpidem Tartrate [Ambien] 10 mg PO QPM 06/21/19 06/21/19 allopurinoL [Zyloprim] 300 mg PO QPM 06/21/19 06/21/19 - Allergies Allergies/Adverse Reactions: Allergies Allergy/AdvReac Type Severity Reaction Status Date / Time No Known Drug Allergies Allergy Verified 10/09/22 10:14 - Social History Does the pt smoke?: No Smoking Status: Never smoker Does the pt drink ETOH?: Yes - Immunizations Immunizations are current?: Yes - POLST Patient has POLST: No POLST Status: Full Code PD ED PE NORMAL - Vitals Vital signs reviewed: Yes - General General: Alert and oriented X 3, No acute distress, Well developed/nourished - Neck Neck: Supple, no meningeal sign, No adenopathy - Cardiac Cardiac: RRR, No murmur - Respiratory Respiratory: Clear bilaterally - Abdomen Abdomen: Soft, Non tender - Derm Derm: Normal color, Warm and dry - Extremities Extremities: No edema, No calf tenderness / cord - Neuro Neuro: Alert and oriented X 3, No motor deficit, Normal speech Results - Vitals Vitals: Oxygen O2 Source Room air - Labs Labs: Laboratory Tests 10/09/22 10/09/22 10/09/22 10:31 10:31 10:31 WBC 6.4 RBC 4.30 L Hgb 14.1 Hct 42.7 MCV 99.3 H MCH 32.8 H MCHC 33.0 RDW 12.6 Plt Count 173 MPV 10.0 Neut # (Auto) 4.2 Lymph # (Auto) 1.2 L Jennings # (Auto) 0.9 Eos # (Auto) 0.1 Baso # (Auto) 0.0 Absolute Nucleated RBC 0.00 Nucleated RBC % 0.0 Sodium 134 L Potassium 3.8 Chloride 98 L Carbon Dioxide 29 Anion Gap 7.0 BUN 14 Creatinine 1.2 Estimated GFR (MDRD) 61 L Glucose 106 H Calcium 9.1 Total Bilirubin 0.9 AST 69 H ALT 64 H Alkaline Phosphatase 88 Total Creatine Kinase Troponin I High Sens 6.0 Total Protein 7.4 Albumin 3.7 Globulin 3.7 Albumin/Globulin Ratio 1.0 Lipase 38 10/09/22 10:31 WBC RBC Hgb Hct MCV MCH MCHC RDW Plt Count MPV Neut # (Auto) Lymph # (Auto) Jennings # (Auto) Eos # (Auto) Baso # (Auto) Absolute Nucleated RBC Nucleated RBC % Sodium Potassium Chloride Carbon Dioxide Anion Gap BUN Creatinine Estimated GFR (MDRD) Glucose Calcium Total Bilirubin AST ALT Alkaline Phosphatase Total Creatine Kinase 62 Troponin I High Sens Total Protein Albumin Globulin Albumin/Globulin Ratio Lipase PD Medical Decision Making - ED course Complexity details: reviewed results (troponin 6. CK 60. other labs including lytes are normal. ), considered differential, d/w patient ED course: onset of symptoms promptly correlated with increased statin dose. Does not have URI symptoms. CK and trop are normal. Presume it is side effect of meds. Departure - Departure Disposition: 01 Home, Self Care Clinical Impression: Side effect of medication, Myalgia due to statin Condition: Stable Record reviewed to determine appropriate education?: Yes Follow-Up: RIYA DELAROSA PA [Primary Care Provider] - Comments: Your EKG is normal as is your troponin blood test which is a measure of heart muscle injury. No signs of heart muscle injury or involvement/(heart attack or heart failure). This does sound like a side effect to your cholesterol medicine and can commonly have muscle aches headache and some loose stool. Your other blood tests of blood count, kidney function, electrolytes, and CK (a measure of skeletal muscle injury) are all normal. Stay off of the atorvastatin. Stay well-hydrated. You can use some ibuprofen once or twice daily if needed for aches or Tylenol every 4-6 hours if needed for pains. Otherwise continue your other usual medicines. I would anticipate gradual improvement in resolution of your symptoms over 3 to 5 days. Follow-up with your primary care regarding other treatments for your cholesterol, be at a different statin or other medications like niacin etc. Discharge Date/Time: 10/09/22 13:09
[2022-10-09] MEDS ORDERED: IBUPROFEN 600 MG TABLET PO STA (12:59)
[2022-10-09] MEDS ORDERED: ACETAMINOPHEN 325 MG TABLET PO STA (12:59)
[2022-10-09 13:10] VITALS: BP 130/70
== END 2022-10-09 13:09 | disposition home or self-care (01) ==
LOC: ED 09:53
DX: M79.10 Myalgia, unspecified site (principal); R11.0 Nausea; R53.1 Weakness; R51.9 Headache, unspecified; R19.7 Diarrhea, unspecified; T46.6X5A Adverse effect of antihyperlipidemic and antiarteriosclerotic drugs, initial encounter
CPT/HCPCS: 36415; 71045; 80053; 82550; 83690; 84484; 85025; 93005; 99283; 99284; A9270

== ENCOUNTER 2023-04-14 14:35 | Outpatient (CLI) | payer OTHER | END 2023-04-14 14:36 | disposition critical access hospital (66) | LOC: EMS 14:35 | DX: R19.5 Other fecal abnormalities (principal); R53.1 Weakness; R42 Dizziness and giddiness; R06.09 Other forms of dyspnea; F41.9 Anxiety disorder, unspecified | CPT/HCPCS: A0425; A0429 ==

== ENCOUNTER 2023-04-14 15:06 | Inpatient (IN) | payer OTHER ==
[2023-04-14] MEDS ORDERED: PANTOPRAZOLE 40 MG VIAL IVP STA (15:15)
--- NOTE | 2023-04-14 15:17 | ED Physician Documentation ---
PD HPI GI BLEED - Stated complaint Stated Complaint: SOA/DIZZY/DARK STOOL - History obtained from History obtained from: Patient - Additional information Additional information: 63-year-old gentleman with history of fairly heavy, alcohol use, quit four days ago, was drinking a Coors light per day. Also takes meloxicam chronically daily for back pain and baby aspirin daily. History of mitral valve repair. For the last two weeks he's had dark, but not black or tarry stools, and feeling generally weak. PD PAST MEDICAL HISTORY - Past Medical History Cardiovascular: High cholesterol, Murmur Respiratory: None Neuro: None Endocrine/Autoimmune: None GI: Hiatal hernia : None HEENT: None Psych: Depression, Other Musculoskeletal: Osteoarthritis, Gout Derm: None - Past Surgical History Past Surgical History: Yes General: Hiatal hernia repair - Present Medications Home Medications: Ambulatory Orders Medication Instructions Recorded Confirmed Citalopram Hydrobromide [Celexa] 1 tab PO QPM 06/21/19 06/21/19 Meloxicam [Mobic] 15 mg PO QPM 06/21/19 06/21/19 Zolpidem Tartrate [Ambien] 10 mg PO QPM 06/21/19 06/21/19 allopurinoL [Zyloprim] 300 mg PO QPM 06/21/19 06/21/19 Aspirin EC [Ecotrin] 81 mg PO DAILY 04/14/23 04/14/23 Atorvastatin Calcium 40 mg PO DAILY 04/14/23 04/14/23 - Allergies Allergies/Adverse Reactions: Allergies Allergy/AdvReac Type Severity Reaction Status Date / Time No Known Drug Allergies Allergy Verified 04/14/23 15:11 - Social History Does the pt smoke?: No Smoking Status: Never smoker Does the pt drink ETOH?: Yes - Immunizations Immunizations are current?: Yes - POLST Patient has POLST: No POLST Status: Full Code PD ED PE NORMAL - Vitals Vital signs reviewed: Yes - General General: Alert and oriented X 3, No acute distress - Cardiac Cardiac: RRR, No murmur - Respiratory Respiratory: No respiratory distress, Clear bilaterally - Abdomen Abdomen: Soft, Non tender - Rectal Rectal: Other (Dark but not quite black/melenic stool, sent for guaiac) - Neuro Neuro: Alert and oriented X 3, Normal speech Results - Vitals Vitals: Vital Signs - 24 hr 04/14/23 04/14/23 04/14/23 15:11 15:35 16:43 Temperature 36.5 C 37.1 C Heart Rate 98 96 Heart Rate [ 94 Monitoring electrodes] Respiratory 16 16 16 Rate Blood Pressure 119/69 118/107 H Blood Pressure 129/76 [Right Brachial artery] O2 Saturation 96 100 99 04/14/23 17:00 Temperature 37.8 C Heart Rate Heart Rate [ 98 Monitoring electrodes] Respiratory 16 Rate Blood Pressure Blood Pressure 134/82 H [Right Brachial artery] O2 Saturation 96 Oxygen O2 Source Room air - Labs Labs: Microbiology 04/14/23 15:10 Occult Blood - Final Stool Laboratory Tests 04/14/23 04/14/23 04/14/23 15:29 15:29 15:29 WBC 6.5 RBC 1.74 L Hgb 5.4 L* Hct 18.1 L* MCV 104.0 H MCH 31.0 MCHC 29.8 L RDW 14.6 Plt Count 237 MPV 9.4 Neut # (Auto) 4.4 Lymph # (Auto) 1.3 L Guthrie # (Auto) 0.6 Eos # (Auto) 0.1 Baso # (Auto) 0.0 Absolute Nucleated RBC 0.02 Nucleated RBC % 0.3 PT 13.5 H INR 1.3 H Sodium Potassium Chloride Carbon Dioxide Anion Gap BUN Creatinine Estimated GFR (MDRD) Glucose Calcium Total Bilirubin AST ALT Alkaline Phosphatase Total Protein Albumin Globulin Albumin/Globulin Ratio Lipase Blood Type O POSITIVE Blood Type Recheck Antibody Screen NEGATIVE Crossmatch IS Only See Detail 04/14/23 04/14/23 15:29 16:03 WBC RBC Hgb Hct MCV MCH MCHC RDW Plt Count MPV Neut # (Auto) Lymph # (Auto) Guthrie # (Auto) Eos # (Auto) Baso # (Auto) Absolute Nucleated RBC Nucleated RBC % PT INR Sodium 137 Potassium 4.3 Chloride 106 Carbon Dioxide 25 Anion Gap 6.0 BUN 25 H Creatinine 0.9 Estimated GFR (MDRD) 85 L Glucose 99 Calcium 8.6 Total Bilirubin 0.4 AST 28 ALT 17 Alkaline Phosphatase 81 Total Protein 5.5 L Albumin 3.3 Globulin 2.2 Albumin/Globulin Ratio 1.5 Lipase 35 Blood Type Blood Type Recheck O POSITIVE Antibody Screen Crossmatch IS Only PD Medical Decision Making - ED course ED course: 63-year-old gentleman with chronic NSAID use and on aspirin, also a history of drinking but without any stigmata or history of liver disease presents with symptoms concerning for GI bleed. And he is guaiac positive from below with a hemoglobin of 5.4, it was 14 a few months ago with INR at 1.3 fairly normal and no evidence of liver disease on CMP either. I discussed the case by phone with Dr. Finch, our on-call surgeon who is plans to do an upper endoscopy tomorrow and subsequently with Dr. Eng at 3:53 PM, our hospitalist who will admit. In the interim a dose of Protonix was ordered and 2 units of blood. During the first unit of blood I was notified by the nurse that he developed a fever up to 101 Fahrenheit. I called the blood bank and confirmed orders which included post transfusion reaction work-up and urinalysis. We will send the current unit of blood back to the lab for culture. Subsequently though discussing with the nurse his temperature was actually 100.1 Fahrenheit. This had not written risen 1 C from his earlier temperature and so actually does not fit the criteria currently for a transfusion reaction. We will restart the blood slowly. Departure - Departure Disposition: 66 [facility] DC/[facility] Clinical Impression: Upper GI bleed Condition: Serious
[2023-04-14 15:35] LABS: BASOPHILS % (AUTO) 0.6 %; EOSINOPHILS # (AUTO) 0.1 10^3/uL (0.0-0.7); EOSINOPHILS % (AUTO) 1.8 %; LYMPHOCYTES # (AUTO) 1.3 10^3/uL (1.5-3.5); LYMPHOCYTES % (AUTO) 20.2 %; MEAN CORPUSCULAR HGB CONC 29.8 g/dL (32.0-36.0); MEAN PLATELET VOLUME 9.4 fL (7.4-11.4); MONOCYTES # (AUTO) 0.6 10^3/uL (0.0-1.0); MONOCYTES % (AUTO) 9.8 %; NEUTROPHILS # (AUTO) 4.4 10^3/uL (1.5-6.6); NEUTROPHILS % (AUTO) 67.1 %; NRBC ABSOLUTE COUNT (AUTO) 0.02 x10^3/uL; NUCLEATED RED BLOOD CELLS AUTO 0.3 /100WBC; PLT - PLATELET COUNT 237 10^3/uL (130-450); RED BLOOD COUNT 1.74 10^6/uL (4.70-6.10); RED CELL DISTRIBUTION WIDTH 14.6 % (12.0-15.0); WHITE BLOOD COUNT 6.5 x10^3/uL (4.8-10.8)
[2023-04-14 15:39] LABS: HGB - HEMOGLOBIN 5.4 g/dL (14.0-18.0)
[2023-04-14 15:40] LABS: HCT - HEMATOCRIT 18.1 % (42.0-52.0)
[2023-04-14 15:48] LABS: ALBUMIN 3.3 g/dL (3.2-5.5); ALBUMIN/GLOBULIN RATIO 1.5 (1.0-2.2); BILIRUBIN,TOTAL 0.4 mg/dL (0.2-1.0); CALCIUM 8.6 mg/dL (8.5-10.3); CREATININE 0.9 mg/dL (0.6-1.3); POTASSIUM 4.3 mmol/L (3.5-4.5); TOTAL PROTEIN 5.5 g/dL (6.4-8.9)
[2023-04-14 15:50] LABS: INR 1.3 (0.8-1.2); PT - PROTHROMBIN TIME 13.5 secs (9.9-12.6)
[2023-04-14] MEDS ORDERED: SODIUM CHLORIDE FLUSH 0.9% 10 ML SYRINGE IVP PRN (16:53)
[2023-04-14] MEDS ORDERED: ACETAMINOPHEN 325 MG TABLET PO PRN (16:53)
[2023-04-14] MEDS ORDERED: ONDANSETRON 4 MG/2 ML VIAL IVP PRN (16:53)
[2023-04-14] MEDS ORDERED: MULTIVITAMIN 10 ML, THIAMINE INJ 100 MG, FOLIC ACID INJ 1 MG in SODIUM CHLORIDE 0.9% 1,... IV SCH (16:59)
--- NOTE | 2023-04-14 17:05 | HISTORY & PHYSICAL EXAMINATION ---
Chief Complaint - Chief Complaint Chief Complaint: Weakness, dizziness, SOA and dark stools History of Present Illness - Admitted From Admitted From:: ED - History Obtained From History obtained from: ED provider and the patient - History of Present Illness HPI Comment/Other: This is a 63-year-old male who has a history of mitral valve repair done for severe mitral valve prolapse. He is followed by Dr. Cohen in the [facility] here. Patient presents with a complaint of 2 weeks of black stools and nearly a week of weakness, shortness of air with activity, dizziness and lightheadedness. He denies any syncope, chest pain, leg edema. In the ER he was found to have a hemoglobin of 5.4. His exam showed dark heme positive stool. Patient takes 1 baby aspirin daily and also takes meloxicam daily or twice daily. The ED provider ordered 2 units PRBCs. The patient reports to me that he drinks 8 beers daily and stopped cold turkey about 4 days ago. He says he did go through withdrawal: was anxious, had insomnia, was shaking and sweaty. To deal with that he took 2 rather than 1 Ambien every night. The ED provider spoke to me about this patient. He will be admitted to manage upper GI bleed and symptomatic anemia. He is currently anxious but has no other signs of active alcohol withdrawal. History - Past Medical History Cardiovascular: reports: High cholesterol, Murmur Respiratory: reports: None Neuro: reports: None Endocrine/Autoimmune: reports: None GI: reports: Hiatal hernia : reports: None HEENT: reports: None Psych: reports: Depression Musculoskeletal: reports: Osteoarthritis, Gout Derm: reports: None MRSA Hx?: No Other Past Medical History: Gout - Past Surgical History General: reports: Hiatal hernia repair Cardiovascular: reports: Valve replacement - Family & Social History Family History Comment/Other: Dad around age 84 of old age. He is 1 of 5 children. 1 of his brothers smoked heavily and is on oxygen for emphysema but his other siblings are healthy. He has 1 daughter who is healthy. He lives alone and just retired, worked [employer] the [employer]. he never smoked cigarettes in his life. He uses no drugs. He drinks 8 beers a day. Living arrangement: At home Living Situation: Alone Social History Notes: He is retired [place]. Says he never smoked. Rarely drank. If he does drink he prefers beer. from his first . Currently engaged to his fiance. Denies any history of recreational substance abuse. - Substance History Use: Uses substance without health or social issues: Alcohol - POLST Patient has POLST: No POLST Status: Full Code Meds/Allgy - Home Medications Home Medications: Ambulatory Orders Medication Instructions Recorded Confirmed Citalopram Hydrobromide [Celexa] 1 tab PO QPM 06/21/19 06/21/19 Meloxicam [Mobic] 15 mg PO QPM 06/21/19 06/21/19 Zolpidem Tartrate [Ambien] 10 mg PO QPM 06/21/19 06/21/19 allopurinoL [Zyloprim] 300 mg PO QPM 06/21/19 06/21/19 Aspirin EC [Ecotrin] 81 mg PO DAILY 04/14/23 04/14/23 Atorvastatin Calcium 40 mg PO DAILY 04/14/23 04/14/23 - Allergies Allergies/Adverse Reactions: Allergies Allergy/AdvReac Type Severity Reaction Status Date / Time No Known Drug Allergies Allergy Verified 04/14/23 15:11 Review of Systems - Constitutional Constitutional: reports: Weakness - Respiratory Respiratory: reports: SOB with exertion - Gastrointestinal Gastrointestinal: reports: Black stools (for 2 weeks) - Neurological Neurological: reports: Other (Insomnia and tremors after stopping alcohol 4 days ago) - Psychiatric Psychiatric: reports: Anxiety - All Other Systems All Other Systems: reports: Reviewed and negative Exam - Vital Signs Reviewed Vital Signs: Yes Vital Signs: Vital Signs x48h Temp Pulse Pulse Resp BP BP Pulse Ox 04/14/23 17:00 37.8 C 98 16 134/82 H 96 04/14/23 16:43 37.1 C 94 16 129/76 99 04/14/23 15:35 96 16 118/107 H 100 04/14/23 15:11 36.5 C 98 16 119/69 96 - Physical Exam General Appearance: positive: No acute distress, Alert Eyes Bilateral: positive: Normal inspection, EOMI ENT: positive: ENT inspection nml, No signs of dehydration Neck: positive: Nml inspection, No JVD Respiratory: positive: No respiratory distress, Breath sounds nml Cardiovascular: positive: Regular rate & rhythm, No murmur Abdomen: positive: Non-tender, Other (Mildly distended, tense, no fluid wave, hypertympanic, cannot palpate liver edge) Skin: positive: Warm, Dry, Pallor Extremities: positive: Non-tender, No pedal edema Neurologic/Psychiatric: positive: Oriented x3, Motor nml Conclusion/Plan - Problem List (1) Anemia due to GI blood loss Conclusion/Plan: Patient felt weak, lightheaded and after 10 days of black BMs he decided to come to the ER when he noticed his blood pressure low Plan: Continue with blood transfusions Target hemoglobin 7 GI work-up as in #2 (2) Upper GI bleed Conclusion/Plan: This could be from alcohol use, his aspirin use, his NSAID use. Plan: Put on clear liquid diet. N.p.o. after midnight to undergo an EGD tomorrow by the general surgeon Start Protonix 40 IV twice daily empirically Do not give his aspirin or NSAIDs. (3) Alcohol use Conclusion/Plan: Patient has no stigmata of alcoholic liver disease except for a mild elevation of INR of 1.3. He stopped drinking his 8 beers a day, cold turkey, 4 days ago and does report going through withdrawal and his worst symptoms were insomnia and anxiety. Plan: Start a CIWA protocol with as needed Ativan for withdrawal Start Librium with a rapid taper Place on a banana bag for IV hydration Social work consult regarding alcohol abuse requested - Lab Results Fish Bones: 04/14/23 15:29 04/14/23 15:29 - Diagnostic Imaging Results Diagnostic Imaging Results: positive: Final report reviewed - Other Other Results/Comments: Attestation: The patient is expected to be hospitalized for greater than 2 midnights and is expected to be discharged or transferred to another facility within 96 hours: Yes.
[2023-04-14] MEDS ORDERED: ACETAMINOPHEN 500 MG TABLET PO STA (17:07)
--- NOTE | 2023-04-14 17:55 | CONSULTATION NOTE ---
Referring Provider Name of Referring Provider:: ED (Tana) Consult Date: 04/14/23 Chief Complaint - Chief Complaint Chief Complaint: I feel terrible History of Present Illness - Admitted From Admitted From:: ED - History Obtained From Records Reviewed: yes History obtained from: ED provider, patient, chart Exam Limitations: none - History of Present Illness HPI Comment/Other: Patient reports feeling "terrible" for the last two weeks, characterized by jojo re fatigue, worsening lightheadedness, shortness of breath, and intermittent abdominal pain which is sometimes epigastric and sometimes lower. He denies any nausea or vomiting. He denies constipation or diarrhea, but does endorse melanotic stools for the last 2 weeks. Prior to this, he "sometimes" had dark stools, and the patient states he hasn't "felt like himself" since the beginning of the summer. He reports a history of heavy alcohol use, drinking 6-12 Coors per day, averaging about 8 beers per day. He stopped drinking 4 days ago and has felt worse since stopping. He has had some tremor, but has never had seizures when he has stopped drinking in the past. He denies smoking or other tobacco use. 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 He denies any fevers or chills, and denies chest pain. In addition to the above, the patient reports significant PMH of mitral valve repair and pacemaker placement and two ventral hernia repairs (and recurrent unrepaired hernia). History - Past Medical History Cardiovascular: reports: High cholesterol, Murmur, Valve disorder (s/p mitral valve repair), Other (pacemaker) Respiratory: reports: None Neuro: reports: None Endocrine/Autoimmune: reports: None GI: reports: Hiatal hernia : reports: None HEENT: reports: None Psych: reports: Depression, Other Musculoskeletal: reports: Osteoarthritis, Gout Derm: reports: None MRSA Hx?: No - Past Surgical History General: reports: Hiatal hernia repair, Other (ventral hernia repair x2) Cardiovascular: reports: Valve replacement (mitral valve repair), Pacemaker - Family & Social History Family History: Mother: Cancer (breast), Father: CAD (had pacemaker) Family History Comment/Other: Dad around age 84 of just "wearing down". He had no history of cancer, but did have a pacemaker. Mom is still alive but elderly, in 90s. She had bilateral mastectomy in her 60s for breast cancer. He is 1 of 5 children. 1 of his brothers smoked like a chimney and is on oxygen for emphysema but his other siblings are healthy. He has 2 children and they are completely healthy. Living arrangement: At home Social History Notes: He is retired [place]. Says he never smoked. Drinks 6-12 Coors beer per day, until 4 days prior to admission. Denies drug use. Daughter is an RN in [place], [place]. - Substance History Dependence: Experiences withdrawal or developed tolerances: Alcohol - POLST Patient has POLST: No POLST Status: Full Code Meds/Allgy - Home Medications Home Medications: Ambulatory Orders Medication Instructions Recorded Confirmed Citalopram Hydrobromide [Celexa] 1 tab PO QPM 06/21/19 06/21/19 Meloxicam [Mobic] 15 mg PO QPM 06/21/19 06/21/19 Zolpidem Tartrate [Ambien] 10 mg PO QPM 06/21/19 06/21/19 allopurinoL [Zyloprim] 300 mg PO QPM 06/21/19 06/21/19 Aspirin EC [Ecotrin] 81 mg PO DAILY 04/14/23 04/14/23 Atorvastatin Calcium 40 mg PO DAILY 04/14/23 04/14/23 - Allergies Allergies/Adverse Reactions: Allergies Allergy/AdvReac Type Severity Reaction Status Date / Time No Known Drug Allergies Allergy Verified 04/14/23 15:11 Review of Systems - Constitutional Constitutional: reports: Other (Negative except for HPI, PMH) Exam - Vital Signs Reviewed Vital Signs: Yes Vital Signs: Vital Signs x48h Temp Pulse Pulse Resp BP BP Pulse Ox 04/14/23 17:43 97 16 129/80 98 04/14/23 17:17 37.2 C 93 16 129/84 H 99 04/14/23 17:00 37.8 C 98 16 134/82 H 96 04/14/23 16:43 37.1 C 94 16 129/76 99 04/14/23 15:35 96 16 118/107 H 100 04/14/23 15:11 36.5 C 98 16 119/69 96 - Physical Exam General Appearance: positive: No acute distress, Alert Eyes Bilateral: positive: Normal inspection, PERRL, EOMI ENT: positive: No signs of dehydration Neck: positive: Trachea midline Respiratory: positive: No respiratory distress Cardiovascular: positive: Regular rate & rhythm Peripheral Pulses: positive: 2+ Abdomen: positive: Non-tender, Other (reducible ventral hernia (supraumbilical)). negative: Guarding, Rebound, Hepatomegaly Rectal: positive: Stool - heme POS Skin: positive: No rash, Pallor Extremities: positive: Full ROM Neurologic/Psychiatric: positive: Oriented x3 Conclusion and Plan - Lab Results Microbiology Results 04/14/23 15:10 Stool Occult Blood - Final Laboratory Results 04/14/23 16:03: Blood Type Recheck O POSITIVE 04/14/23 15:29: Sodium 137, Potassium 4.3, Chloride 106, Carbon Dioxide 25, Anion Gap 6.0, BUN 25 H, Creatinine 0.9, Estimated GFR (MDRD) 85 L, Glucose 99, Calcium 8.6, Total Bilirubin 0.4, AST 28, ALT 17, Alkaline Phosphatase 81, Total Protein 5.5 L, Albumin 3.3, Globulin 2.2, Albumin/Globulin Ratio 1.5, Lipase 35 04/14/23 15:29: PT 13.5 H, INR 1.3 H 04/14/23 15:29: WBC 6.5, RBC 1.74 L, Hgb 5.4 L*, Hct 18.1 L*, MCV 104.0 H, MCH 31.0, MCHC 29.8 L, RDW 14.6, Plt Count 237, MPV 9.4, Neut # (Auto) 4.4, Lymph # (Auto) 1.3 L, Routt # (Auto) 0.6, Eos # (Auto) 0.1, Baso # (Auto) 0.0, Absolute Nucleated RBC 0.02, Nucleated RBC % 0.3 04/14/23 15:29: Blood Type O POSITIVE, Antibody Screen NEGATIVE, Crossmatch IS Only See Detail - Consultation Note Consultation Note: 63 y/o M with: 1. severe, symptomatic anemia - in the process of being transfused - HD stable 2. Guiac positive stool, GI bleed, suspected upper GI source - dark stools for at least the last two weeks - no abdominal pain on exam for me today - heavy EtOH use, daily NSAID and daily ASA use - plan for EGD tomorrow - If negative, would consider prep for in hospital CE. Patient was scheduled for screening CE at [facility] on Friday; he will call to cancel and reschedule this study. - recommend stopping NSAIDs (indefinitely), holding ASA (while actively bleeding, with plan to restart), and encouraged alcohol cessation (indefinitely) - agree with PPI - ok to have sips/chips tonight, with further diet recommendations pending endoscopy findings Thank you for consulting me in the care of this patient! I will continue to follow closely.
[2023-04-14] MEDS: SODIUM CHLORIDE FLUSH 0.9% 10 ML SYRINGE IVP SCH ×4 (18:36→23:30)
[2023-04-14] MEDS ORDERED: LORazepam 2 MG/ML VIAL IVP STA (19:42)
[2023-04-14] MEDS: CITALOPRAM HYDROBROMIDE 20 MG TABLET PO SCH (20:57)
[2023-04-14] MEDS: ZOLPIDEM 5 MG TABLET PO SCH (20:57)
[2023-04-14] MEDS: chlordiazePOXIDE 5 MG CAPSULE PO SCH (20:57)
[2023-04-14] MEDS: PANTOPRAZOLE 40 MG VIAL IV SCH (20:57)
[2023-04-14] MEDS: LORazepam 2 MG/ML VIAL IVP PRN ×2 (22:37→23:30)
[2023-04-15 05:26] LABS: HCT - HEMATOCRIT 21.1 % (42.0-52.0); MEAN CORPUSCULAR HEMOGLOBIN 30.7 pg (27.0-31.0); MEAN CORPUSCULAR HGB CONC 31.3 g/dL (32.0-36.0); MEAN CORPUSCULAR VOLUME 98.1 fL (80.0-94.0); MEAN PLATELET VOLUME 9.1 fL (7.4-11.4); RED BLOOD COUNT 2.15 10^6/uL (4.70-6.10); RED CELL DISTRIBUTION WIDTH 18.1 % (12.0-15.0); WHITE BLOOD COUNT 6.1 x10^3/uL (4.8-10.8)
[2023-04-15 05:35] LABS: HGB - HEMOGLOBIN 6.6 g/dL (14.0-18.0)
[2023-04-15 05:45] LABS: CALCIUM 8.5 mg/dL (8.5-10.3); MAGNESIUM 1.8 mg/dL (1.7-2.3); PHOSPHORUS 3.4 mg/dL (2.5-5.0); POTASSIUM 3.7 mmol/L (3.5-4.5)
--- NOTE | 2023-04-15 07:11 | PROVIDER PROGRESS NOTE ---
Subjective - General Admit Date: 04/14/23 - Review of Systems All Other Systems: positive: Reviewed and negative - Other Other Information/Narrative: No BM overnight. Slept well. Denies abdominal pain. Feeling much better. Objective - Patient Data Vital Signs: Vital Signs x48h Temp Pulse Resp BP Pulse Ox 04/15/23 05:00 36.8 C 84 16 116/77 96 04/14/23 23:46 37 C 86 16 121/71 95 04/14/23 23:45 37 C 86 16 121/71 95 04/14/23 23:30 37.1 C 98 20 125/67 94 Weight: Weight 04/13/23 04/14/23 04/15/23 23:59 23:59 23:59 Weight (kg) 97.5 kg Intake & Output: Intake and Output Totals x24h 04/13/23 04/14/23 04/15/23 23:59 23:59 23:59 Intake Total 2130 1011.2 Output Total 250 1150 Balance 1880 -138.8 - Lab Results Lab Results: 04/15/23 04:47 04/15/23 04:47 Other Lab Results: Lab Results x24hrs 04/15/23 04/15/23 04/14/23 Range/Units 04:47 04:47 16:03 WBC 6.1 (4.8-10.8) x10^3/uL RBC 2.15 L (4.70-6.10) 10^6/uL Hgb 6.6 L* (14.0-18.0) g/dL Hct 21.1 L (42.0-52.0) % MCV 98.1 H (80.0-94.0) fL MCH 30.7 (27.0-31.0) pg MCHC 31.3 L (32.0-36.0) g/dL RDW 18.1 H (12.0-15.0) % Plt Count 215 (130-450) 10^3/uL MPV 9.1 (7.4-11.4) fL Neut # (Auto) (1.5-6.6) 10^3/uL Lymph # (Auto) (1.5-3.5) 10^3/uL Garfield # (Auto) (0.0-1.0) 10^3/uL Eos # (Auto) (0.0-0.7) 10^3/uL Baso # (Auto) (0.0-0.1) 10^3/uL Absolute Nucleated RBC x10^3/uL Nucleated RBC % /100WBC PT (9.9-12.6) secs INR (0.8-1.2) Sodium 140 (135-145) mmol/L Potassium 3.7 (3.5-4.5) mmol/L Chloride 110 (101-111) mmol/L Carbon Dioxide 24 (21-32) mmol/L Anion Gap 6.0 (6-13) BUN 17 (6-20) mg/dL Creatinine 1.0 (0.6-1.3) mg/dL Estimated GFR (MDRD) 75 L (>89) Glucose 102 (74-104) mg/dL Calcium 8.5 (8.5-10.3) mg/dL Phosphorus 3.4 (2.5-5.0) mg/dL Magnesium 1.8 (1.7-2.3) mg/dL Total Bilirubin (0.2-1.0) mg/dL AST (10-42) IU/L ALT (10-60) IU/L Alkaline Phosphatase (42-121) IU/L Total Protein (6.4-8.9) g/dL Albumin (3.2-5.5) g/dL Globulin (2.1-4.2) g/dL Albumin/Globulin Ratio (1.0-2.2) Lipase (11-82) U/L Blood Type Blood Type Recheck O POSITIVE Antibody Screen Crossmatch IS Only 04/14/23 04/14/23 04/14/23 Range/Units 15:29 15:29 15:29 WBC 6.5 (4.8-10.8) x10^3/uL RBC 1.74 L (4.70-6.10) 10^6/uL Hgb 5.4 L* (14.0-18.0) g/dL Hct 18.1 L* (42.0-52.0) % MCV 104.0 H (80.0-94.0) fL MCH 31.0 (27.0-31.0) pg MCHC 29.8 L (32.0-36.0) g/dL RDW 14.6 (12.0-15.0) % Plt Count 237 (130-450) 10^3/uL MPV 9.4 (7.4-11.4) fL Neut # (Auto) 4.4 (1.5-6.6) 10^3/uL Lymph # (Auto) 1.3 L (1.5-3.5) 10^3/uL Garfield # (Auto) 0.6 (0.0-1.0) 10^3/uL Eos # (Auto) 0.1 (0.0-0.7) 10^3/uL Baso # (Auto) 0.0 (0.0-0.1) 10^3/uL Absolute Nucleated RBC 0.02 x10^3/uL Nucleated RBC % 0.3 /100WBC PT 13.5 H (9.9-12.6) secs INR 1.3 H (0.8-1.2) Sodium 137 (135-145) mmol/L Potassium 4.3 (3.5-4.5) mmol/L Chloride 106 (101-111) mmol/L Carbon Dioxide 25 (21-32) mmol/L Anion Gap 6.0 (6-13) BUN 25 H (6-20) mg/dL Creatinine 0.9 (0.6-1.3) mg/dL Estimated GFR (MDRD) 85 L (>89) Glucose 99 (74-104) mg/dL Calcium 8.6 (8.5-10.3) mg/dL Phosphorus (2.5-5.0) mg/dL Magnesium (1.7-2.3) mg/dL Total Bilirubin 0.4 (0.2-1.0) mg/dL AST 28 (10-42) IU/L ALT 17 (10-60) IU/L Alkaline Phosphatase 81 (42-121) IU/L Total Protein 5.5 L (6.4-8.9) g/dL Albumin 3.3 (3.2-5.5) g/dL Globulin 2.2 (2.1-4.2) g/dL Albumin/Globulin Ratio 1.5 (1.0-2.2) Lipase 35 (11-82) U/L Blood Type Blood Type Recheck Antibody Screen Crossmatch IS Only 04/14/23 Range/Units 15:29 WBC (4.8-10.8) x10^3/uL RBC (4.70-6.10) 10^6/uL Hgb (14.0-18.0) g/dL Hct (42.0-52.0) % MCV (80.0-94.0) fL MCH (27.0-31.0) pg MCHC (32.0-36.0) g/dL RDW (12.0-15.0) % Plt Count (130-450) 10^3/uL MPV (7.4-11.4) fL Neut # (Auto) (1.5-6.6) 10^3/uL Lymph # (Auto) (1.5-3.5) 10^3/uL Garfield # (Auto) (0.0-1.0) 10^3/uL Eos # (Auto) (0.0-0.7) 10^3/uL Baso # (Auto) (0.0-0.1) 10^3/uL Absolute Nucleated RBC x10^3/uL Nucleated RBC % /100WBC PT (9.9-12.6) secs INR (0.8-1.2) Sodium (135-145) mmol/L Potassium (3.5-4.5) mmol/L Chloride (101-111) mmol/L Carbon Dioxide (21-32) mmol/L Anion Gap (6-13) BUN (6-20) mg/dL Creatinine (0.6-1.3) mg/dL Estimated GFR (MDRD) (>89) Glucose (74-104) mg/dL Calcium (8.5-10.3) mg/dL Phosphorus (2.5-5.0) mg/dL Magnesium (1.7-2.3) mg/dL Total Bilirubin (0.2-1.0) mg/dL AST (10-42) IU/L ALT (10-60) IU/L Alkaline Phosphatase (42-121) IU/L Total Protein (6.4-8.9) g/dL Albumin (3.2-5.5) g/dL Globulin (2.1-4.2) g/dL Albumin/Globulin Ratio (1.0-2.2) Lipase (11-82) U/L Blood Type O POSITIVE Blood Type Recheck Antibody Screen NEGATIVE Crossmatch IS Only See Detail - Current Medications Current Medications: Current Medications Generic Name Dose Route Start Last Admin Trade Name Freq PRN Reason Stop Dose Admin Chlordiazepoxide HCl 5 mg 04/14/23 21:00 04/14/23 20:57 Chlordiazepoxide 5 Mg Capsule PO 5 mg BID LOCO Administration Citalopram Hydrobromide 40 mg 04/14/23 21:00 04/14/23 20:57 Citalopram Hydrobromide 20 Mg Tablet PO 40 mg QPM LOCO Administration Multivitamins 10 ml/ Thiamine 1,011.2 mls @ 100 mls/hr 04/14/23 16:59 04/15/23 05:55 HCl 100 mg/ Folic Acid 1 mg/ IV Infused Sodium Chloride DAILY LOCO Infusion Lorazepam 1 mg 04/14/23 16:59 04/14/23 23:30 Lorazepam 2 Mg/Ml Vial IVP 1 mg Q30M PRN Administration CIWA >8 Protocol Pantoprazole Sodium 40 mg 04/14/23 21:00 04/14/23 20:57 Pantoprazole 40 Mg Vial IV 40 mg BID LOCO Administration Sodium Chloride 10 ml 04/14/23 17:00 04/14/23 23:30 Sodium Chloride Flush 0.9% 10 Ml Syringe IVP 10 ml 0100,0900,1700 LOCO Administration Zolpidem Tartrate 10 mg 04/14/23 21:00 04/14/23 20:57 Zolpidem 5 Mg Tablet PO 10 mg QPM LOCO Administration - Physical Exam General Appearance: positive: No acute distress, Alert Eyes Bilateral: positive: Normal inspection, PERRL ENT: positive: No signs of dehydration Neck: positive: Trachea midline Respiratory: positive: No respiratory distress Cardiovascular: positive: Regular rate & rhythm Abdomen: positive: Non-tender. negative: Guarding, Rebound Skin: positive: No rash Extremities: positive: Non-tender, Full ROM Neurologic/Psychiatric: positive: Oriented x3 Impression/Plan - Problem List Problem List: 63 y/o M with: 1. severe, symptomatic anemia - s/p transfusion 2U pRBC's - repeat hgb 6.6 this AM - HD stable 2. Guiac positive stool, GI bleed, suspected upper GI source - dark stools for at least the last two weeks, no additional BM since presentation - no abdominal pain this AM - heavy EtOH use, daily NSAID and daily ASA use - plan for EGD later today - If EGD is negative, would consider prep for in hospital CE. Patient was scheduled for screening CE at [facility] on Friday; he (patient) will call to cancel and reschedule this study. - recommend stopping NSAIDs (indefinitely), holding ASA (while actively bleeding , with plan to restart), and encouraged alcohol cessation (indefinitely) - agree with PPI - NPO until after endoscopy, further diet recommendations pending endoscopy findings 3. alcohol use disorder - no alcohol for four days prior to admission - patient does not appear to be in active withdrawl - follow closely, may need CIWA Thank you for consulting me in the care of this patient! I will continue to follow closely.
[2023-04-15] MEDS: chlordiazePOXIDE 5 MG CAPSULE PO SCH ×2 (08:25→21:39)
[2023-04-15] MEDS: PANTOPRAZOLE 40 MG VIAL IV SCH ×2 (08:25→21:39)
[2023-04-15] MEDS: SODIUM CHLORIDE FLUSH 0.9% 10 ML SYRINGE IVP SCH (08:26)
--- NOTE | 2023-04-15 11:55 | PHARMACY PROGRESS NOTE ---
- Best Possible Medication History Admit Date and Time: 04/14/23 1652 Processed by: Pharmacy Medication History completed: Yes Patient Interview: Completed Secondary Source(s): Pharmacy records, Insurance records As the person ultimately responsible for medication therapy, providers are able to order a medication from an existing home medication list in [facility] via the "Reconcile Routine" prior to Confirmation of that medication by help desk support specialist. Such practice is discouraged except when the physician, in their clinical judgment, deems that a medical need exists for a medication without regard to previous use.
--- NOTE | 2023-04-15 12:55 | ANESTHESIA ---
Pre-Anesthesia VS, & Labs - Diagnosis anemia - Procedure EGD Vital Signs: Temp Pulse Resp BP Pulse Ox O2 Flow Rate 37.1 C 82 18 117/72 92 04/15/23 12:05 04/15/23 12:05 04/15/23 12:05 04/15/23 12:05 04/15/23 12:05 Height: 5 ft 10 in Weight (kg): 97.5 kg Body Mass Index: 30.8 BMI Classification: Obese - NPO >8 hours - Lab Results Current Lab Results: Laboratory Tests 04/15/23 04:47: WBC 6.1, RBC 2.15 L, Hgb 6.6 L*, Hct 21.1 L, MCV 98.1 H, MCH 30.7, MCHC 31.3 L, RDW 18.1 H, Plt Count 215, MPV 9.1 04/15/23 04:47: Sodium 140, Potassium 3.7, Chloride 110, Carbon Dioxide 24, Anion Gap 6.0, BUN 17, Creatinine 1.0, Estimated GFR (MDRD) 75 L, Glucose 102, Calcium 8.5, Phosphorus 3.4, Magnesium 1.8 04/14/23 16:03: Blood Type Recheck O POSITIVE 04/14/23 15:29: Sodium 137, Potassium 4.3, Chloride 106, Carbon Dioxide 25, Anion Gap 6.0, BUN 25 H, Creatinine 0.9, Estimated GFR (MDRD) 85 L, Glucose 99, Calcium 8.6, Total Bilirubin 0.4, AST 28, ALT 17, Alkaline Phosphatase 81, Total Protein 5.5 L, Albumin 3.3, Globulin 2.2, Albumin/Globulin Ratio 1.5, Lipase 35 04/14/23 15:29: PT 13.5 H, INR 1.3 H 04/14/23 15:29: WBC 6.5, RBC 1.74 L, Hgb 5.4 L*, Hct 18.1 L*, MCV 104.0 H, MCH 31.0, MCHC 29.8 L, RDW 14.6, Plt Count 237, MPV 9.4, Neut # (Auto) 4.4, Lymph # (Auto) 1.3 L, Bowman # (Auto) 0.6, Eos # (Auto) 0.1, Baso # (Auto) 0.0, Absolute Nucleated RBC 0.02, Nucleated RBC % 0.3 04/14/23 15:29: Blood Type O POSITIVE, Antibody Screen NEGATIVE, Crossmatch IS Only See Detail Fish Bones: 04/15/23 04:47 04/15/23 04:47 Home Medications and Allergies Home Medications: Ambulatory Orders Aspirin EC [Ecotrin] 81 mg PO DAILY 04/14/23 Atorvastatin Calcium 40 mg PO DAILY 04/14/23 Acyclovir 400 mg PO TID 04/15/23 Active Medications Acetaminophen (Acetaminophen 325 Mg Tablet) 650 mg PO Q4HR PRN PRN Reason: Pain 1 to 4, or Fever Chlordiazepoxide HCl (Chlordiazepoxide 5 Mg Capsule) 5 mg PO BID [facility] Last Admin: 04/15/23 08:25 Dose: 5 mg Citalopram Hydrobromide (Citalopram Hydrobromide 20 Mg Tablet) 40 mg PO QPM [facility] Last Admin: 04/14/23 20:57 Dose: 40 mg Lorazepam (Lorazepam 2 Mg/Ml Vial) 1 mg IVP Q30M PRN; Protocol PRN Reason: CIWA >8 Last Admin: 04/14/23 23:30 Dose: 1 mg Multivitamins (Multivitamin Tablet) 1 tab PO DAILYWM [facility] Ondansetron HCl (Ondansetron 4 Mg/2 Ml Vial) 4 mg IVP Q6HR PRN PRN Reason: Nausea / Vomiting Pantoprazole Sodium (Pantoprazole 40 Mg Vial) 40 mg IV BID [facility] Last Admin: 04/15/23 08:25 Dose: 40 mg Sodium Chloride (Sodium Chloride Flush 0.9% 10 Ml Syringe) 10 ml IVP PRN PRN PRN Reason: NEEDED PER PROVIDER ORDERS Sodium Chloride (Sodium Chloride Flush 0.9% 10 Ml Syringe) 10 ml IVP 0100,0900,1700 [facility] Last Admin: 04/15/23 08:26 Dose: 10 ml Zolpidem Tartrate (Zolpidem 5 Mg Tablet) 10 mg PO QPM [facility] Last Admin: 04/14/23 20:57 Dose: 10 mg Citalopram Hydrobromide [Celexa] 40 mg PO QPM 06/21/19 Meloxicam [Mobic] 15 mg PO QPM 06/21/19 Zolpidem Tartrate [Ambien] 10 mg PO QPM 06/21/19 allopurinoL [Zyloprim] 300 mg PO QPM 06/21/19 Aspirin EC [Ecotrin] 81 mg PO DAILY 04/14/23 Atorvastatin Calcium 40 mg PO DAILY 04/14/23 Acyclovir 400 mg PO TID 04/15/23 Allergies/Adverse Reactions: Allergies Allergy/AdvReac Type Severity Reaction Status Date / Time No Known Drug Allergies Allergy Verified 04/14/23 15:11 Anes History & Medical History - Anesthetic History Anesthesia Complications: reports: No previous complications Family history of Anesthesia Complications: Denies Family history of Malignant Hyperthermia: Denies - Medical History Cardiovascular: reports: High cholesterol, Murmur Pulmonary: reports: None Gastrointestinal: reports: Hiatal hernia Urinary: reports: None Neuro: reports: None Musculoskeletal: reports: Osteoarthritis, Gout Endocrine/Autoimmune: reports: None Blood Disorders: reports: None Skin: reports: None Smoking Status: Never smoker Psychosocial: reports: Alcohol (heavy ETOH for many years, quit cold 4 days ago. treated by Hospitalist for ETOH dependence/WD) Other Past Medical History: Gout - Surgical History General: reports: Hiatal hernia repair Cardiothoracic: reports: Valve replacement Exam General: Alert, Oriented x3, Cooperative Dental: WNL Mouth Openin Fingerbreadth Neck Mobility: Normal Mallampati classification: II Thyromental Distance: 4-6 cm Respiratory: Lungs clear Cardiovascular: Regular rate Plan Anesthesia Type: General, Total IV Consent for Procedure(s) Verified and Reviewed: Yes Code Status: Attempt Resuscitation ASA classification: 3-Severe systemic disease Is this case an emergency?: No
[2023-04-15] MEDS ORDERED: PROPOFOL 500 MG/50 ML 500 MG/50 ML VIAL ONE (13:51)
[2023-04-15] MEDS ORDERED: LIDOCAINE-PF 2% 10 ML AMP SUBQ ONE (13:51)
[2023-04-15] MEDS ORDERED: ePHEDrine 50 MG/ML VIAL IVP ONE (14:02)
--- NOTE | 2023-04-15 14:51 | ANESTHESIA POST OP EVALUATION ---
Anesthesia Post Eval - Post Anesthesia Eval Vitals: Last Vital Signs Temp 37.0 C 04/15/23 14:48 Pulse 85 04/15/23 14:48 Resp 18 04/15/23 14:48 BP 98/69 04/15/23 14:48 Pulse Ox 94 04/15/23 14:48 O2 Flow Rate CV Function Including HR & BP: Stable Pain Control: Satisfactory Nausea & Vomiting: Negative Mental Status: Baseline Respiratory Status: Airway Patent Hydration Status: Satisfactory Anesthesia Complications: None
[2023-04-15] MEDS: MULTIVITAMIN TABLET PO SCH (14:56)
[2023-04-15] MEDS ORDERED: MULTIVITAMIN 10 ML, THIAMINE INJ 100 MG, FOLIC ACID INJ 1 MG in SODIUM CHLORIDE 0.9% 1,... IV SCH (16:00)
--- NOTE | 2023-04-15 17:48 | PROVIDER PROGRESS NOTE ---
Subjective - Prog Note Date Prog Note Date: 04/15/23 Prog Note Time: 17:46 - Subjective Pt reports feeling: Improved Subjective: No reports of melena, nausea, hematemesis. He underwent his EGD today and there were 2 findings. The first was a nonbleeding, small, ulcer of his stomach. Before he had the EGD the endoscopy tube went down his trachea and is found to have a mass in the trixie. Current Medications - Current Medications Current Medications: Active Medications Acetaminophen (Acetaminophen 325 Mg Tablet) 650 mg PO Q4HR PRN PRN Reason: Pain 1 to 4, or Fever Chlordiazepoxide HCl (Chlordiazepoxide 5 Mg Capsule) 5 mg PO BID [facility] Last Admin: 04/15/23 08:25 Dose: 5 mg Citalopram Hydrobromide (Citalopram Hydrobromide 20 Mg Tablet) 40 mg PO QPM [facility] Last Admin: 04/14/23 20:57 Dose: 40 mg Lorazepam (Lorazepam 2 Mg/Ml Vial) 1 mg IVP Q30M PRN; Protocol PRN Reason: CIWA >8 Last Admin: 04/14/23 23:30 Dose: 1 mg Multivitamins (Multivitamin Tablet) 1 tab PO DAILYWM [facility] Last Admin: 04/15/23 14:56 Dose: 1 tab Ondansetron HCl (Ondansetron 4 Mg/2 Ml Vial) 4 mg IVP Q6HR PRN PRN Reason: Nausea / Vomiting Pantoprazole Sodium (Pantoprazole 40 Mg Vial) 40 mg IV BID [facility] Last Admin: 04/15/23 08:25 Dose: 40 mg Sodium Chloride (Sodium Chloride Flush 0.9% 10 Ml Syringe) 10 ml IVP PRN PRN PRN Reason: NEEDED PER PROVIDER ORDERS Sodium Chloride (Sodium Chloride Flush 0.9% 10 Ml Syringe) 10 ml IVP 0100, 0900,1700 [facility] Last Admin: 04/15/23 08:26 Dose: 10 ml Zolpidem Tartrate (Zolpidem 5 Mg Tablet) 10 mg PO QPM [facility] Last Admin: 04/14/23 20:57 Dose: 10 mg Citalopram Hydrobromide [Celexa] 40 mg PO QPM 06/21/19 Meloxicam [Mobic] 15 mg PO QPM 06/21/19 Zolpidem Tartrate [Ambien] 10 mg PO QPM 06/21/19 allopurinoL [Zyloprim] 300 mg PO QPM 06/21/19 Aspirin EC [Ecotrin] 81 mg PO DAILY 04/14/23 Atorvastatin Calcium 40 mg PO DAILY 04/14/23 Acyclovir 400 mg PO TID 04/15/23 Objective - Vital Signs/Intake & Output Reviewed Vital Signs: Yes Vital Signs: Vital Signs x48h Temp Pulse Resp BP Pulse Ox 04/15/23 17:28 37.1 C 94 19 103/52 L 94 04/15/23 16:04 36.4 C L 80 18 110/69 96 04/15/23 15:05 36.4 C L 81 19 110/69 96 04/15/23 14:48 37.0 C 85 18 98/69 94 04/15/23 13:57 37.0 C 73 18 112/73 96 04/15/23 12:05 37.1 C 82 18 117/72 92 04/15/23 10:51 36.7 C 76 18 106/75 95 04/15/23 10:33 36.2 C L 81 18 115/66 94 Intake & Output: Intake & Output 04/12/23 04/13/23 04/14/23 04/15/23 23:59 23:59 23:59 23:59 Intake Total 2130 3687.2 Output Total 250 2950 Balance 1880 737.2 - Objective General Appearance: positive: No acute distress (But he feels miserable. "My body just hurts all over". No tremors, diaphoresis or hallucinations), Alert Eyes Bilateral: positive: PERRL, EOMI ENT: positive: No signs of dehydration Neck: positive: No JVD. negative: Stiff neck Respiratory: positive: No respiratory distress. negative: Wheezes, Rales, Rho nchi Cardiovascular: positive: Regular rate & rhythm Abdomen: positive: Non-tender, No organomegaly, Nml bowel sounds, No distention Skin: positive: Warm, Dry Extremities: positive: Full ROM, No pedal edema Neurologic/Psychiatric: positive: Oriented x3, CN's nml (2-12), Motor nml - Lab Results Fish Bones: 04/15/23 04:47 04/15/23 04:47 Other Labs: Lab Results x24hrs 04/15/23 04/15/23 04/14/23 Range/Units 04:47 04:47 15:29 WBC 6.1 (4.8-10.8) x10^3/uL RBC 2.15 L (4.70-6.10) 10^6/uL Hgb 6.6 L* (14.0-18.0) g/dL Hct 21.1 L (42.0-52.0) % MCV 98.1 H (80.0-94.0) fL MCH 30.7 (27.0-31.0) pg MCHC 31.3 L (32.0-36.0) g/dL RDW 18.1 H (12.0-15.0) % Plt Count 215 (130-450) 10^3/uL MPV 9.1 (7.4-11.4) fL Sodium 140 (135-145) mmol/L Potassium 3.7 (3.5-4.5) mmol/L Chloride 110 (101-111) mmol/L Carbon Dioxide 24 (21-32) mmol/L Anion Gap 6.0 (6-13) BUN 17 (6-20) mg/dL Creatinine 1.0 (0.6-1.3) mg/dL Estimated GFR (MDRD) 75 L (>89) Glucose 102 (74-104) mg/dL Calcium 8.5 (8.5-10.3) mg/dL Phosphorus 3.4 (2.5-5.0) mg/dL Magnesium 1.8 (1.7-2.3) mg/dL Blood Type O POSITIVE Antibody Screen NEGATIVE Crossmatch IS Only See Detail Assessment/Plan - Problem List (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 No biopsies done. Patient will need outpatient follow-up. Plan: CT chest abdomen and pelvis for work-up and staging before biopsy. Biopsy will need to be done in the outpatient setting through specialty services. (2) Anemia due to GI blood loss Impression: EGD done and he does have a small nonbleeding gastric ulcer. He has already been transfused 2 units between yesterday and today. Plan: Transfuse 2 units Continue proton pump inhibitor. Patient encouraged to stop drinking. No nonsteroidal therapy (3) Upper GI bleed Conclusion/Plan: This could be from alcohol use, his aspirin use, his NSAID use. EGD shows small nonbleeding ulcer. Plan: Regular diet this afternoon and tonight and n.p.o. after midnight for CT scan that needs to be done for possible lung tumor (4) Alcohol use Conclusion/Plan: Patient has no stigmata of alcoholic liver disease except for a mild elevation of INR of 1.3. He stopped drinking his 8 beers a day, cold turkey, 4 days ago and does report going through withdrawal and his worst symptoms were insomnia and anxiety. I asked him if he plans on stopping drinking and he said yes. I had thought to offer him a beer with each meal if he was planning on continuing to drink. He adamantly states that he is going to stop drinking. As such we will continue CIWA protocol with as needed Ativan for withdrawal. Librium with a rapid taper ongoing. Change banana bag IV to p.o. vitamin and thiamine.
[2023-04-15 18:59] LABS: HCT - HEMATOCRIT 27.6 % (42.0-52.0); HGB - HEMOGLOBIN 8.7 g/dL (14.0-18.0); MEAN CORPUSCULAR HEMOGLOBIN 29.5 pg (27.0-31.0); MEAN CORPUSCULAR HGB CONC 31.5 g/dL (32.0-36.0); MEAN CORPUSCULAR VOLUME 93.6 fL (80.0-94.0); MEAN PLATELET VOLUME 8.6 fL (7.4-11.4); RED BLOOD COUNT 2.95 10^6/uL (4.70-6.10); RED CELL DISTRIBUTION WIDTH 18.6 % (12.0-15.0); WHITE BLOOD COUNT 6.4 x10^3/uL (4.8-10.8)
[2023-04-15] MEDS: CITALOPRAM HYDROBROMIDE 20 MG TABLET PO SCH (21:39)
[2023-04-15] MEDS: ZOLPIDEM 5 MG TABLET PO SCH (21:39)
[2023-04-15] MEDS: LORazepam 2 MG/ML VIAL IVP PRN ×2 (21:40→22:56)
[2023-04-16] MEDS: SODIUM CHLORIDE FLUSH 0.9% 10 ML SYRINGE IVP SCH ×2 (02:07→08:39)
[2023-04-16 06:03] LABS: HCT - HEMATOCRIT 26.6 % (42.0-52.0); HGB - HEMOGLOBIN 8.6 g/dL (14.0-18.0); MEAN CORPUSCULAR HEMOGLOBIN 30.1 pg (27.0-31.0); MEAN CORPUSCULAR HGB CONC 32.3 g/dL (32.0-36.0); MEAN PLATELET VOLUME 9.2 fL (7.4-11.4); RED BLOOD COUNT 2.86 10^6/uL (4.70-6.10); RED CELL DISTRIBUTION WIDTH 18.2 % (12.0-15.0); WHITE BLOOD COUNT 5.9 x10^3/uL (4.8-10.8)
[2023-04-16 06:10] LABS: CALCIUM 8.7 mg/dL (8.5-10.3); POTASSIUM 3.9 mmol/L (3.5-4.5)
[2023-04-16 08:10] VITALS: BP 123/70; O2SAT 93
[2023-04-16] MEDS: MULTIVITAMIN TABLET PO SCH (08:38)
[2023-04-16] MEDS: chlordiazePOXIDE 5 MG CAPSULE PO SCH (08:39)
[2023-04-16] MEDS: PANTOPRAZOLE 40 MG VIAL IV SCH (08:39)
--- NOTE | 2023-04-16 10:03 | PROVIDER PROGRESS NOTE ---
Subjective - General Admit Date: 04/14/23 Procedure Date: 04/15/23 Post Op Days: 1 Procedure Performed: upper endoscopy - Review of Systems All Other Systems: positive: Reviewed and negative - Other Other Information/Narrative: Patient feeling much better than he did at presentation. He is committed to alcohol abstinence and denies an offer for local resources to assist him in this journey. He is tolerating a regular diet without pain, nausea, or vomiting. He would like to go home. Objective - Patient Data Reviewed Vital Signs: Yes Vital Signs: Vital Signs x48h Temp Pulse Resp BP Pulse Ox 04/16/23 08:01 36.9 C 65 20 123/70 93 04/16/23 05:00 36.9 C 66 18 108/60 95 Weight: Weight 04/14/23 04/15/23 04/16/23 23:59 23:59 23:59 Weight (kg) 97.5 kg 97.5 kg Intake & Output: Intake and Output Totals x24h 04/14/23 04/15/23 04/16/23 23:59 23:59 23:59 Intake Total 2130 4687.2 180 Output Total 250 4450 1450 Balance 1880 237.2 -1270 - Lab Results Lab Results: 04/16/23 05:38 04/16/23 05:38 Other Lab Results: Lab Results x24hrs 04/16/23 04/16/23 04/15/23 Range/Units 05:38 05:38 18:52 WBC 5.9 6.4 (4.8-10.8) x10^3/uL RBC 2.86 L 2.95 L (4.70-6.10) 10^6/uL Hgb 8.6 L 8.7 L (14.0-18.0) g/dL Hct 26.6 L 27.6 L (42.0-52.0) % MCV 93.0 93.6 (80.0-94.0) fL MCH 30.1 29.5 (27.0-31.0) pg MCHC 32.3 31.5 L (32.0-36.0) g/dL RDW 18.2 H 18.6 H (12.0-15.0) % Plt Count 219 216 (130-450) 10^3/uL MPV 9.2 8.6 (7.4-11.4) fL Sodium 141 (135-145) mmol/L Potassium 3.9 (3.5-4.5) mmol/L Chloride 108 (101-111) mmol/L Carbon Dioxide 26 (21-32) mmol/L Anion Gap 7.0 (6-13) BUN 12 (6-20) mg/dL Creatinine 1.0 (0.6-1.3) mg/dL Estimated GFR (MDRD) 75 L (>89) Glucose 109 H (74-104) mg/dL Calcium 8.7 (8.5-10.3) mg/dL Blood Type Antibody Screen Crossmatch IS Only 04/14/23 Range/Units 15:29 WBC (4.8-10.8) x10^3/uL RBC (4.70-6.10) 10^6/uL Hgb (14.0-18.0) g/dL Hct (42.0-52.0) % MCV (80.0-94.0) fL MCH (27.0-31.0) pg MCHC (32.0-36.0) g/dL RDW (12.0-15.0) % Plt Count (130-450) 10^3/uL MPV (7.4-11.4) fL Sodium (135-145) mmol/L Potassium (3.5-4.5) mmol/L Chloride (101-111) mmol/L Carbon Dioxide (21-32) mmol/L Anion Gap (6-13) BUN (6-20) mg/dL Creatinine (0.6-1.3) mg/dL Estimated GFR (MDRD) (>89) Glucose (74-104) mg/dL Calcium (8.5-10.3) mg/dL Blood Type O POSITIVE Antibody Screen NEGATIVE Crossmatch IS Only See Detail - Imaging Results Imaging Results Comments: CT c/a/p pending this AM. - Current Medications Current Medications: Current Medications Generic Name Dose Route Start Last Admin Trade Name Freq PRN Reason Stop Dose Admin Acetaminophen 650 mg 04/14/23 16:53 04/15/23 21:39 Acetaminophen 325 Mg Tablet PO 650 mg Q4HR PRN Administration Pain 1 to 4, or Fever Chlordiazepoxide HCl 5 mg 04/14/23 21:00 04/16/23 08:39 Chlordiazepoxide 5 Mg Capsule PO 5 mg BID [facility] Administration Citalopram Hydrobromide 40 mg 04/14/23 21:00 04/15/23 21:39 Citalopram Hydrobromide 20 Mg Tablet PO 40 mg QPM [facility] Administration Lorazepam 1 mg 04/14/23 16:59 04/15/23 22:56 Lorazepam 2 Mg/Ml Vial IVP 1 mg Q30M PRN Administration CIWA >8 Protocol Multivitamins 1 tab 04/15/23 13:00 04/16/23 08:38 Multivitamin Tablet PO 1 tab DAILYWM [facility] Administration Pantoprazole Sodium 40 mg 04/14/23 21:00 04/16/23 08:39 Pantoprazole 40 Mg Vial IV 40 mg BID [facility] Administration Sodium Chloride 10 ml 04/14/23 17:00 04/16/23 08:39 Sodium Chloride Flush 0.9% 10 Ml Syringe IVP 10 ml 0100,0900,1700 [facility] Administration Zolpidem Tartrate 10 mg 04/14/23 21:00 04/15/23 21:39 Zolpidem 5 Mg Tablet PO 10 mg QPM [facility] Administration - Physical Exam General Appearance: positive: No acute distress, Alert Eyes Bilateral: positive: Normal inspection, PERRL, EOMI ENT: positive: No signs of dehydration Neck: positive: Trachea midline Respiratory: positive: No respiratory distress Cardiovascular: positive: Regular rate & rhythm Abdomen: positive: Non-tender. negative: Guarding, Rebound Back: positive: Nml inspection Skin: positive: No rash. negative: Pallor (color much improved) Extremities: positive: Non-tender, Full ROM Neurologic/Psychiatric: positive: Oriented x3 Impression/Plan - Problem List Problem List: 63 y/o M with: 1.gastric ulcer, non bleeding; severe, symptomatic anemia, improved - s/p transfusion 4U pRBC's, hgb now greater than 8 and stable for more than 12 hours - HD stable - no pain, tolerating diet - prepyloric ulcer seen on EGD. Biopsied for h pylori and ulcer taken at time of EGD on 04/15/23, pathology pending - recommend patient avoid NSAIDs, alcohol, tobacco, and continue on BID PO PPI, and daily vitamin to aid in hematopoesis. Ok to restart ASA on discharge (taking for h/o mitral valve repair) - I also recommend the patient f/u with his PCP in 1-2 weeks regarding arthritis (patient is going to try tylenol, but worried he will not be able to tolerate pain without mobic) and this hospital stay. 2. alcohol use disorder - no alcohol for four days prior to admission - patient does not appear to be in active withdrawl 3. mass at trixie visualized on upper endoscopy - CT pending this AM - recommend close f/u with pulmonology vs CT surgery as an outpatient for further workup 4. need for screening colonoscopy - patient was scheduled for this study at [facility] today, now cancelled - patient scheduled for f/u with Dr. Finch on 05/01 at 3:30pm. We will reschedule his colonoscopy at that time. Thank you for consulting me in the care of this patient! I agree he is stable for discharge from a general surgery standpoint. I will continue to follow closely.
--- NOTE | 2023-04-16 10:35 | CT Report ---
PROCEDURE: CHEST W INDICATIONS: new mass in trixie on EGD CONTRAST: 100ml Omni 300 TECHNIQUE: After the administration of intravenous contrast, 1 mm axial images were acquired from the pulmonary apices through the posterior costophrenic angles. Axial 5 mm soft tissue kernel reconstructions were performed as well as 8 mm axial MIP and coronal and sagittal 5 mm reformations. For radiation dose reduction, the following was used: automated exposure control, adjustment of mA and/or kV according to patient size. COMPARISON: Chest x-ray 10/09/2022, chest CT 06/21/2019 FINDINGS: Image quality: Excellent. Lungs and pleura: Several patchy mainly centralized areas of groundglass opacity and patchy consolida tion. These are present bilaterally and diffusely. Subpleural regions are spared. There are air bronc hograms in these regions but no bronchial wall thickening or bronchiectasis seen. The largest area is present in the left lower lobe. There are no focal dense nodules or masses in the lungs. No pleural effusions. No pneumothorax. Mediastinum: Heart size is at the upper limits of normal. Median sternotomy changes, mitral annulopla sty, and pacemaker leads are present. No pericardial effusion. No large vessel abnormality. Normal si ze lymph nodes are present in the mediastinum, including in the subcarinal region, and bilateral saurabh r regions. No pathologic enlarged adenopathy by size criteria. Chest wall and lower neck: Thyroid is unremarkable. No axillary or supraclavicular adenopathy by size . Bones: No aggressive osseous abnormality. Upper Abdomen: Dictated separately. IMPRESSION: 1. Scattered patchy central airspace disease bilaterally are slightly more consolidative, but in a si milar distribution to airspace disease seen 06/21/2019. Findings are suggestive of chronic underlying lung disease which may be organizing pneumonia, chronic pulmonary artery is cephalic granulomatosis with polyarteritis, or vasculitis. 2. Mediastinal and hilar lymph nodes are not pathologically enlarged and are similar compared to the prior CT. 3. Prior median sternotomy and cardiac intervention. Reviewed by: Adwoa Cortez MD on 04/16/2023 10:33 AM PDT Approved by: Adwoa Cortez MD on 04/16/2023 10:33 AM PDT Station ID: [id number]
--- NOTE | 2023-04-16 10:38 | Discharge Plan ---
Discharge Plan Problem Reviewed?: Yes Disposition: Home, Self Care Condition: Fair Prescriptions: Pnv No.95/Ferrous Fum/Folic AC [ Tablet] 1 each PO DAILY #100 tablet Thiamine [Vitamin B-1] 100 mg PO DAILY #100 tab Diet: Regular Activity Restrictions: Activity as Tolerated Shower Restrictions: No Driving Restrictions: No Health Concerns: Unfortunately you have a history of alcohol abuse and drink about 8 beers a day. You also have a history of mitral valve disease and heart disease and take an aspirin a day. You also take Mobic, another anti-inflammatory, for generalized osteoarthritis pain. For about 2 weeks before admission, you developed black stools and shortness of breath. You stopped drinking 4 days prior to admission and started to go through withdrawal with shaking and insomnia. You came to the emergency room because you are getting very lightheaded. We measured how much blood you have in your body because we suspected an upper GI bleed from your stomach due to alcohol abuse and nonsteroidal therapy. The amount we measured was 5.4 g of hemoglobin. The normal amount of blood is to be 12 g of hemoglobin. As such we admitted you for an upper GI bleed, and alcohol withdrawal. We transfused you 4 units of blood. And your hemoglobin went from 5.4 to 8.6 g of hemoglobin at discharge. You are not having any more black stools. Your withdrawal symptoms have resolved. Your blood pressure and pulse are normal. General surgery was consulted and they did do an upper endoscopy. This is a video camera examination of your esophagus and stomach. Fortunately there are no esophageal variceal. These are varicose veins of the esophagus that happen from cirrhosis. You did not have varicose veins which is a good thing. We did find a small, nonbleeding, gastric ulcer of your stomach due to your drinking and use of aspirin and Mobic. The surgeon also found that you have a mass that seems to be where the trachea (the main breathing tube going into your lungs divides in two) goes into the lungs. We call that the trixie. We ordered a CAT scan of the chest looking for possible cancer. The CAT scan showed you to have patchy lung disease that is suggestive of chronic bronchitis, chronic inflammation. This chronic inflammatory changes have been getting worse since 2019. That is when you presented with bloody phlegm in relation to your ruptured mitral valve. The good news is that no mass was seen in the trixie. The radiologist is postulating that you may have inflammation of the arterial supply of your lungs causing a false reading of a mass in your trixie. Plan of Treatment: 1. You cannot take any anti-inflammatory drugs because they do lead to more gastric ulcers, especially when combined with alcohol. So you cannot take Aleve, aspirin, Naprosyn, ibuprofen, Motrin, Mobic, etc. The only [id number] medicine you can take for pain and inflammation is Tylenol. 2. Because the endoscopy found a small, nonbleeding stomach ulcer, you will need to take a acid reducing medicine to heal your ulcer for the next 30 days. That medicine is called Protonix. 3. In order to complete your GI work-up, you will need a colonoscopy in the near future. Please have your primary care provider make a referral for you to get a colonoscopy which will examine your bowel to make sure there are no tumors or diverticulosis. Care Goals: 1. Please see your primary care provider in follow-up. You said that your previous primary care provider has retired from the [facility]. You now need to be assigned to a new provider at the clinic. Please asked that new provider to order the following things: -Referral to a grand jury deputy sheriff to get a bronchoscopy and pulmonary alveolar lavage to see what the inflammation is in your lungs. The inflammation could be autoimmune disease, or infection. It is very important to get to the bottom of it because it seems to be getting worse since 2019. -A repeat cell count to make sure that your anemia is getting better -Referral to see the surgeon again for repeat endoscopy to make sure that ulcer is healed, and to get a follow-up colonoscopy to make sure there is nothing going on with your lower GI tract causing bleeding 2. You promised to stop drinking. We heartily support that endeavor. Drinking has caused you to have an ulcer and upper GI bleeding. It can increase your risk of cancer. And it can give you cirrhosis. You have already gone through withdrawal and hopefully would be avoiding going through any future withdrawal if you stay sober. Social work has already seen you and given you a list of opportunities with regards to alcohol abuse counseling. For example, Alcoholics Anonymous. Please avail yourself of those opportunities or ask your [place] doctor if the [place] has any support system for you. 3. When there is evidence of alcohol abuse, we find that those people tend to be deficient in folate and B6 vitamin. As such we are having you take a vitamin and thiamine. This should be able to cover all of the B deficiencies that you may have. Do this for the next 1 to 2 months. Assessment: Patient is alert and oriented to person, place time and situation. He promises to follow through on appointments. He also promises to stop drinking. No Smoking: If you smoke, Please STOP! Call for help.
--- NOTE | 2023-04-16 10:44 | CT Report ---
PROCEDURE: ABDOMEN/PELVIS W INDICATIONS: new mass in trixie found on eGD CONTRAST: 100ml Omni 300 TECHNIQUE: After the administration of IV contrast, 5 mm thick sections acquired from the diaphragms to the symp hysis. 5 mm thick coronal and sagittal reformats were acquired. For radiation dose reduction, the f ollowing was used: automated exposure control, adjustment of mA and/or kV according to patient size. COMPARISON: None FINDINGS: Image quality: Excellent. Lung bases and heart: Dictated separately Liver: No solid mass. Gallbladder and biliary tree: Partially decompressed gallbladder and nondilated biliary tree. Spleen: No splenomegaly. Pancreas: No pancreatic ductal dilation. Adrenals: No adrenal nodule. Kidneys and ureters: Symmetric enhancement. No hydronephrosis or nephrolithiasis. No solid mass or cy st requiring follow-up. Normal ureters. Bowel and peritoneum: Stomach and small bowel loops are normal. No wall thickening. Occasional ascend ing colonic diverticulosis. Normal appendix. Decompressed stomach. Lymph nodes: No central or retroperitoneal adenopathy. Vessels: Normal caliber IVC and aorta. Trace aortic calcification. PELVIS Reproductive organs: Normal. Bladder: Mild diffuse uniform wall thickening. No mass. Pelvic lymph nodes: No pelvic adenopathy by size criteria. Bones: No suspicious bone lesions. Severe degenerative disc and endplate change at the L3-4 level. Tr sara anterolisthesis L5 on S1. Bridging osteophytosis at the right sacroiliac joint. Degenerative face t arthropathy. Other: Prior lower abdominal mesh ventral hernia repair. There is a recurrent fat-containing hernia w ith a neck measuring 2.0 x 1.6 cm. There is no internal or surrounding inflammation. No fluid in the hernia sac. There is a very tiny, very narrow necked fat-containing hernia immediately superior to th is region. IMPRESSION: 1. No suspicious mass or evidence of malignancy in the abdomen or pelvis. 2. Fat-containing ventral hernias including a previously repaired and recurrent fat-containing hernia . Reviewed by: Adwoa Cortez MD on 04/16/2023 10:43 AM PDT Approved by: Adwoa Cortez MD on 04/16/2023 10:43 AM PDT Station ID: [id number]
--- NOTE | 2023-04-16 11:17 | DISCHARGE SUMMARY ---
"Discharge Summary Admit Date: 04/14/23 Discharge Date: 04/16/23 Discharging Provider: Pearl Amaya MD Primary Care Provider: Samuel Santos [facility] Clinic Code Status: Attempt Resuscitation Condition at Discharge: Fair Discharge Disposition: 01 Home, Self Care - DIAGNOSES Discharge Diagnoses with Status of Each Condition: 1. Upper GI bleed 2. Iron deficiency anemia serum secondary to chronic blood loss 3. Alcohol abuse 4. Alcohol withdrawal without delirium 5. Gastric ulcer 6. 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 Inflammatory lung disease, unspecified 8. History of mitral valve repair - [facility] History of Present Illness: This is a 63-year-old male who has a history of mitral valve repair done for severe mitral valve prolapse. He is followed by Dr. Cohen in the [facility] clinic here. Patient presents with a complaint of 2 weeks of black stools and nearly a week of weakness, shortness of air with activity, dizziness and lightheadedness. He denies any syncope, chest pain, leg edema. In the ER he was found to have a hemoglobin of 5.4. His exam showed dark heme positive stool. Patient takes 1 baby aspirin daily and also takes meloxicam daily or twice daily. The ED provider ordered 2 units PRBCs. The patient reports to me that he drinks 8 beers daily and stopped cold turkey about 4 days ago. He says he did go through withdrawal: was anxious, had insomnia, was shaking and sweaty. To deal with that he took 2 rather than 1 Ambien every night. The ED provider spoke to me about this patient. He will be admitted to manage upper GI bleed and symptomatic anemia. He is currently anxious but has no other signs of active alcohol withdrawal. History - Past Medical History Cardiovascular: reports: High cholesterol, Murmur Respiratory: reports: None Neuro: reports: None Endocrine/Autoimmune: reports: None GI: reports: Hiatal hernia : reports: None HEENT: reports: None Psych: reports: Depression Musculoskeletal: reports: Osteoarthritis, Gout Derm: reports: None MRSA Hx?: No Other Past Medical History: Gout - Past Surgical History General: reports: Hiatal hernia repair Cardiovascular: reports: Valve replacement - CONSULTS | PROCEDURES Procedures: Esophagogastroduodenoscopy with biopsies April 15 showing nonbleeding cratered gastric ulcer in the prepyloric region of the stomach. 10 mm largest dimension. Esophagus normal. Normal duodenum. Scope was inadvertently passed into the trachea and a mass noted at the trixie. CT of the chest done because of carinal mass on EGD. He has worsening centralized areas of groundglass opacity and patchy consolidation since 2019. Subpleural regions are spared. There are air bronchograms in these regions but no bronchial wall thickening or bronchiectasis. The largest area is present in the left lower lobe. There are no focal dense nodules or masses in the lungs. In looking at the trachea and trixie there are no masses. This is all suggestive of chronic underlying lung disease which may be Boop, or arteritis/polyarteritis/vasculitis. Pulmonary granulomatosis is also suggested. Aspiration pneumonia is possible considering his history of alcohol abuse and withdrawal but there is no witnessed aspiration. Chronic atypical infections that are immunocompromise could manifest this way. Those be pneumocystis or CMV pneumonia. Transfusion of 4 units of blood Occult blood stool positive - HOSPITAL COURSE Hospital Course: The patient presented with with dizziness, fatigue and shortness of breath in the context of melanotic stool. He was felt to be having an upper GI bleed and he had serial hemograms. His initial hemoglobin was 5.4 and he was transfused 1 unit of blood and only went to 6.6. He was eventually transfused 4 units and hemoglobin was 8.7. 24 hours later it was 8.6. His EGD had a normal duodenum, normal esophagus, and nonbleeding gastric ulcer with no stigmata of bleeding. The scope was inadvertently passed into the trachea and a mass was noted at the trixie. From his GI bleed perspective the patient remained stable. We then worked up the trixie mass seen on EGD and imaging did not show any mass. We would recommend that he get outpatient follow-up with a possible bronchoscopy to make sure. He also went through alcohol withdrawal. Required short-term CIWA protocol. He is discharged in stable condition. We have asked him to please avoid any nonsteroidal therapy for the rest of his life because of ulcers. We have asked him to follow-up with pulmonology to see if he needs a bronchoscopy and pulmonary alveolar lavage. He should also be seen by general surgery 1 more time to make sure his ulcer is healed. We strongly recommended that he avoid any alcohol intake for the rest of his life. At discharge temperature is 36.9. Heart rate 65. Blood pressure 123/70. Respirations 20. 93% on room air. Neck is supple, lungs are clear, regular rate and rhythm. Abdomen hypoactive bowel sounds, nontender. Greater than 30 minutes spent coordinating discharge. We are asking him to go home on thiamine, and a vitamin for his folate. Proton pump inhibitor daily for 30 days.I had inadvertently not prescribe that at discharge. I am having case management call the patient to make sure he picks up the prescription. This document was made in part using voice recognition software. While efforts are made to proofread this document, sound alike and grammatical errors may occur. - ALLERGIES Allergies/Adverse Reactions: Allergies Allergy/AdvReac Type Severity Reaction Status Date / Time No Known Drug Allergies Allergy Verified 04/14/23 15:11 - MEDICATIONS Home Medications: Ambulatory Orders Medication Instructions Recorded Confirmed Citalopram Hydrobromide [Celexa] 40 mg PO QPM 06/21/19 04/15/23 Zolpidem Tartrate [Ambien] 10 mg PO QPM 06/21/19 04/15/23 allopurinoL [Zyloprim] 300 mg PO QPM 06/21/19 04/15/23 Atorvastatin Calcium 40 mg PO DAILY 04/14/23 04/14/23 Acyclovir 400 mg PO TID 04/15/23 04/15/23 Pnv No.95/Ferrous Fum/Folic AC 1 each PO DAILY #100 tablet 04/16/23 [ Tablet] Thiamine [Vitamin B-1] 100 mg PO DAILY #100 tab 04/16/23 Pantoprazole [Protonix] 40 mg PO DAILY #30 tablet 04/22/23 - LABS Result Diagrams: 04/16/23 05:38 04/16/23 05:38"
[2023-04-16] MEDS ORDERED: iohexoL-300 100 ML VIAL IVP ONE (16:54)
[2023-04-17] MEDS ORDERED: THIAMINE 100 MG TABLET PO SCH (11:00)
== END 2023-04-16 12:02 | disposition home or self-care (01) | DRG 378 ==
LOC: EDUNIT# → ED 15:06 → MS2 16:53
PROVIDERS: ADMIT Internal Medicine; ATTEND Specialist
PROC: 30233N1 Transfusion of Nonautologous Red Blood Cells into Peripheral Vein, Percutaneous Approach (ICD-10-PCS; 2023-04-15)
PROC: 0DB78ZX Excision of Stomach, Pylorus, Via Natural or Artificial Opening Endoscopic, Diagnostic (ICD-10-PCS; principal; 2023-04-15 15:00)
DX: K25.4 Chronic or unspecified gastric ulcer with hemorrhage (principal); F10.139 Alcohol abuse with withdrawal, unspecified; D50.0 Iron deficiency anemia secondary to blood loss (chronic); D38.1 Neoplasm of uncertain behavior of trachea, bronchus and lung; J98.4 Other disorders of lung; Z79.82 Long term (current) use of aspirin; F41.9 Anxiety disorder, unspecified; E78.00 Pure hypercholesterolemia, unspecified
CPT/HCPCS: 36415; 71260; 74177; 80048; 80053; 82272; 83690; 83735; 84100; 85025; 85027; 85610; 86850; 86900; 86901; 86920; 96374; 99284; 99285; A9270; J2060; J3411; J8499; P9016; Q9967; 85018

== ENCOUNTER 2023-05-20 11:35 | Day surgery (SDC) | payer OTHER ==
[2023-05-20] MEDS ORDERED: LACTATED RINGERS 1,000 ML IV ONE ×2 (12:14→14:07)
--- NOTE | 2023-05-20 12:48 | ANESTHESIA ---
Pre-Anesthesia VS, & Labs - Diagnosis screening - Procedure colonoscopy Vital Signs: Temp Pulse Resp BP Pulse Ox O2 Flow Rate 36.3 C L 72 12 150/95 H 98 05/20/23 11:47 05/20/23 11:47 05/20/23 11:47 05/20/23 11:47 05/20/23 11:47 Height: 5 ft 10 in Weight (kg): 97 kg Body Mass Index: 30.7 BMI Classification: Obese - NPO >8 hours - Lab Results Lab results reviewed: Yes Home Medications and Allergies Home Medications: Ambulatory Orders Acetaminophen [Tylenol] 650 mg PO Q6H PRN 05/15/23 Amoxicillin 4 tab PO ONCE 05/15/23 Aspirin [Aspirin EC] 81 mg PO DAILY 05/15/23 Citalopram Hydrobromide [Celexa] 40 mg PO QPM 06/21/19 Zolpidem Tartrate [Ambien] 10 mg PO QPM 06/21/19 Atorvastatin Calcium 40 mg PO DAILY 04/14/23 Acetaminophen [Tylenol] 650 mg PO Q6H PRN 05/15/23 Amoxicillin 4 tab PO ONCE 05/15/23 Aspirin [Aspirin EC] 81 mg PO DAILY 05/15/23 Allergies/Adverse Reactions: Allergies Allergy/AdvReac Type Severity Reaction Status Date / Time No Known Drug Allergies Allergy Verified 04/14/23 15:11 Anes History & Medical History - Anesthetic History Anesthesia Complications: reports: No previous complications Family history of Anesthesia Complications: Denies Family history of Malignant Hyperthermia: Denies - Medical History Cardiovascular: reports: High cholesterol, Murmur, Valve disorder, Other (PM) Pulmonary: reports: None Gastrointestinal: reports: GI bleed, Ulcers Urinary: reports: None Neuro: reports: None Musculoskeletal: reports: Osteoarthritis, Gout, Chronic back pain Endocrine/Autoimmune: reports: None Blood Disorders: reports: None Skin: reports: None Smoking Status: Never smoker Psychosocial: reports: Alcohol - Surgical History General: reports: Colonoscopy, EGD Cardiothoracic: reports: Pacemaker, Other Orthopedic: reports: Arthroscopic surgery Exam General: Alert, Oriented x3, Cooperative Dental: WNL Mouth Openin Fingerbreadth Neck Mobility: Normal Mallampati classification: II Thyromental Distance: 4-6 cm Respiratory: Lungs clear Cardiovascular: Regular rate Plan Anesthesia Type: Total IV Consent for Procedure(s) Verified and Reviewed: Yes Code Status: Attempt Resuscitation ASA classification: 3-Severe systemic disease Is this case an emergency?: No
[2023-05-20] MEDS ORDERED: MIDAZOLAM 2 MG/2 ML VIAL ONE (13:48)
[2023-05-20] MEDS ORDERED: PROPOFOL 500 MG/50 ML 1,000 MG/100 ML VIAL ONE (13:54)
[2023-05-20 14:37] VITALS: BP 107/72; O2SAT 99
--- NOTE | 2023-05-20 14:53 | ANESTHESIA POST OP EVALUATION ---
Anesthesia Post Eval - Post Anesthesia Eval Vitals: Last Vital Signs Temp 36.2 C L 05/20/23 14:28 Pulse 61 05/20/23 14:28 Resp 16 05/20/23 14:28 BP 107/72 05/20/23 14:28 Pulse Ox 99 05/20/23 14:28 O2 Flow Rate CV Function Including HR & BP: Stable Pain Control: Satisfactory Nausea & Vomiting: Negative Mental Status: Baseline Respiratory Status: Airway Patent Hydration Status: Satisfactory Anesthesia Complications: None
== END 2023-05-20 11:36 | disposition home or self-care (01) ==
LOC: SDS 11:35
PROVIDERS: ATTEND Surgery
PROC: 0DBK8ZZ Excision of Ascending Colon, Via Natural or Artificial Opening Endoscopic (ICD-10-PCS; principal; 2023-05-20 13:45)
DX: Z12.11 Encounter for screening for malignant neoplasm of colon (principal); K63.5 Polyp of colon; E66.9 Obesity, unspecified; Z68.30 Body mass index [BMI] 30.0-30.9, adult; Z95.0 Presence of cardiac pacemaker
CPT/HCPCS: 45380; J7120